=== PATIENT | male | born 1955 | race Caucasian/White ===

== ENCOUNTER → 2016-09-19 | Outpatient (CLI) | payer BC | LOC: MW.CHIM 08:27 | PROVIDERS: ATTEND Internal Medicine | DX: I10 Essential (primary) hypertension (principal); E11.9 Type 2 diabetes mellitus without complications | CPT/HCPCS: 36415; 80053; 80061; 83036; 85025 ==

== ENCOUNTER → 2016-09-24 | Outpatient (CLI) | payer BC ==
--- NOTE | 2016-09-24 16:37 | CR ---
EXAMINATION: Cervical spine HISTORY: Neck pain COMPARISON: MRI dated 02/28/2016 TECHNIQUE: AP, lateral, flexion and extension imaging FINDINGS: The cervical spinal alignment appears normal. The vertebral body heights and disc spaces a re grossly maintained. Mild marginal osteophytes are noted within the inferior cervical spine. Posit ion and alignment appear normal with flexion and extension. The prevertebral soft tissues are normal . No fracture or acute osseous abnormality. IMPRESSION: Mild degenerative changes without acute findings.
== END ==
LOC: MW.DI 13:12
PROVIDERS: ATTEND Neurological Surgery
DX: M54.2 Cervicalgia (principal); M47.812 Spondylosis without myelopathy or radiculopathy, cervical region
CPT/HCPCS: 72050; 72050-26

== ENCOUNTER → 2016-09-24 | Outpatient (CLI) | payer BC ==
--- NOTE | 2016-09-24 10:45 | US ---
EXAMINATION: Right upper quadrant ultrasound HISTORY: Hepatitis C COMPARISON: Renal ultrasound dated 01/31/2016 TECHNIQUE: Grayscale and color Doppler images obtained of the right upper quadrant. FINDINGS: The visualized pancreas appears normal. The liver is mildly increased in generalized echot exture without a focal hepatic mass. The gallbladder wall thickness is normal. No pericholecystic fl uid or shadowing gallstones. The common bile duct measures 5 mm. There is moderate right pyelocaliec tasis noted with dilatation of the proximal right ureter. Normal color Doppler flow is noted within the right kidney. The sonographic Torres sign is negative. IMPRESSION: 1. Mild fatty infiltration of the liver versus hepatocellular disease. 2. Moderate right-sided hydronephrosis, similar in appearance to the previous ultrasound.
== END ==
LOC: MW.US 08:47
PROVIDERS: ATTEND Internal Medicine
DX: R74.0 Nonspecific elevation of levels of transaminase and lactic acid dehydrogenase [LDH] (principal); K76.0 Fatty (change of) liver, not elsewhere classified; N13.30 Unspecified hydronephrosis
CPT/HCPCS: 76705; 76705-26

== ENCOUNTER 2018-01-01 06:50 | Day surgery (SDC) | payer BC ==
[~2018-01-01 06:50] MED LIST: Lactated Ringers 1,000 ML IV SCH; Sodium Chloride 0.9% 10 ML Syringe FLUSH PRN; Sodium Chloride 0.9% 2.5 ML Syringe FLUSH PRN; ceFAZolin 2 GM in Premix Bag 1 BAG IV ONE
[2018-01-01] MEDS ORDERED: fentaNYL 100 MCG/2 ML SDV ONE ×2 (07:25→07:28)
[2018-01-01] MEDS ORDERED: Ondansetron 4 MG/2 ML SDV ONE (07:25)
[2018-01-01] MEDS ORDERED: Propofol 200 MG/20 ML SDV ONE (07:25)
[2018-01-01] MEDS ORDERED: Midazolam 1 MG/ML 2 ML SDV ONE (07:26)
[2018-01-01] MEDS ORDERED: Glycopyrrolate 0.2 MG/ML SDV ONE (07:26)
--- NOTE | 2018-01-01 07:29 | PCM.PREANE ---
Preanesthetic Assessment - Anesthesia/Transfusion/Family Hx Anesthesia History: Prior Anesthesia Without Reaction Family History of Anesthesia Reaction: No Transfusion History: No Prior Transfusion(s) - Review of Systems General: No Symptoms Pulmonary: No Symptoms Cardiovascular: No Symptoms Gastrointestinal: No Symptoms Neurological: No Symptoms Other: Reports: None - Physical Assessment NPO Status Date: 12/31/17 Height: 1.83 m Weight: 116.573 kg ASA Class: 3 Airway Class: Mallampati = 1 Dentition: Reports: Normal Dentition ROM/Head Extension: Full Lungs: Clear to Auscultation, Normal Respiratory Effort Cardiovascular: Regular Rate, Regular Rhythm - Allergies Allergies/Adverse Reactions: Allergies Allergy/AdvReac Type Severity Reaction Status Date / Time No Known Allergies Allergy Verified 12/31/17 08:15 - Anesthesia Plan Pre-Op Medication Ordered: None - Acknowledgements Anesthesia Type Planned: General Anesthesia Pt an Appropriate Candidate for the Planned Anesthesia: Yes Alternatives and Risks of Anesthesia Discussed w Pt/Guardian: Yes Pt/Guardian Understands and Agrees with Anesthesia Plan: Yes Additional Comments: PMH: COPD, DM2, HLD, SHIRA, s/p rx for hep C PLAN: get PreAnesthesia Questionnaire HEENT History: Reports: Other (See Below) Other HEENT History: wears glasses Cardiovascular History: Reports: Hypertension Respiratory History: Reports: COPD, Sleep Apnea Other Respiratory History: uses CPAP Gastrointestinal History: Reports: Hepatitis Other Gastrointestinal History: hepatitis C in the past, has been treated Genitourinary History: Reports: Renal Calculus Musculoskeletal History: Reports: Arthritis Neurological History: Reports: Concussion Endocrine/Metabolic History: Reports: Diabetes, Type II, Obesity/BMI 30+ - Past Surgical History Head Surgeries/Procedures: Reports: None HEENT Surgical History: Reports: Tonsillectomy - SUBSTANCE USE Smoking Status *Q: Former Smoker Recreational Drug Use History: No - HOME MEDS Home Medications: Home Meds amLODIPine Besylate [Amlodipine Besylate] 5 mg PO DAILY 08/30/14 [History] Albuterol [Ventolin HFA] 2 puff INH ASDIRECTED PRN 12/31/17 [History] Budesonide/Formoterol Fumarate [Symbicort 80-4.5 Mcg Inhaler] 1 inhalation INH BID 12/31/17 [History] Dulaglutide [Trulicity] 1 injection SUBCUT WEEKLY 12/31/17 [History] Lisinopril 20 mg PO DAILY 12/31/17 [History] Spironolact/Hydrochlorothiazid [Spironolactone-HCTZ 25-25] 1 tab PO DAILY [History] glipiZIDE [Glucotrol XL] 0.5 tab PO BID 12/31/17 [History] metFORMIN HCl [Metformin HCl] 1 tab PO BID 12/31/17 [History] - CURRENT (IN HOUSE) MEDS Current Meds: Current Medications Lactated Ringer's (Ringers, Lactated) 1,000 mls @ 100 mls/hr IV ASDIRECTED JUAN Sodium Chloride (Saline Flush) 10 ml FLUSH ASDIRECTED PRN PRN Reason: Keep Vein Open Sodium Chloride (Saline Flush) 2.5 ml FLUSH ASDIRECTED PRN PRN Reason: Keep Vein Open Discontinued Medications Cefazolin Sodium/Dextrose 2 gm (/ Premix) 50 mls @ 100 mls/hr IV ONCALL ONE Stop: 01/01/18 00:30
[2018-01-01] MEDS ORDERED: Rocuronium 10 MG/ML 10 ML Syringe ONE (07:30)
[2018-01-01] MEDS ORDERED: Sugammadex Sodium 200 MG/2 ML VIAL ONE (07:33)
[2018-01-01] MEDS ORDERED: Morphine 10 MG/ML Syringe ONE (09:16)
--- NOTE | 2018-01-01 09:56 | PCM.POSTAN ---
POST ANESTHESIA ASSESSMENT - MENTAL STATUS Mental Status: Alert, Oriented - RESPIRATORY Respiratory Status: Respiratory Rate WNL, Airway Patent, O2 Saturation Stable - CARDIOVASCULAR CV Status: Pulse Rate WNL, Blood Pressure Stable - GASTROINTESTINAL GI Status: No Symptoms - POST OP HYDRATION Hydration Status: Adequate & Stable
--- NOTE | 2018-01-01 10:35 | PCM48HPAN ---
Post Anesthesia Note - EVALUATION WITHIN 48HRS OF ANESTHETIC Vital Signs in Normal Range: Yes Patient Participated in Evaluation: Yes Respiratory Function Stable: Yes Airway Patent: Yes Cardiovascular Function Stable: Yes Hydration Status Stable: Yes Pain Control Satisfactory: Yes Nausea and Vomiting Control Satisfactory: Yes Mental Status Recovered: Yes Resp Rate: 16
[2018-01-01 12:40] VITALS: BP 136/75
--- NOTE | 2018-01-01 12:53 | OR ---
SURGEON: Billy Logan M.D. DATE OF PROCEDURE: 01/01/2018 PREOPERATIVE DIAGNOSIS: Right mid ureteral stone. POSTOPERATIVE DIAGNOSIS: Right mid ureteral stone. OPERATIONS: Extracorporeal shockwave therapy plus cystoscopy, double-J stent placement. DESCRIPTION OF PROCEDURE: The patient was given general anesthesia, placed in lithotripsy table. The position of the patient was adjusted, so the stone could be treated and eventually received a total of 3000 shocks. The change in the appearance of the stone was not satisfactory, so he was then placed in dorsal lithotomy position, prepped and draped in sterile drapes. Cystoscopy was done that was normal. A Glidewire was advanced alongside the stone all the way up into the renal pelvis over which a 6-[place]el[place] 26 centimeter double-J stent was placed. Position was confirmed on fluoroscopy. The bladder was emptied and the patient was moved to recovery room in good condition. HOLDEN / ARLETH /[id number]
[2018-01-01] MEDS ORDERED: Desflurane 240 ML Bottle ONE (13:25)
== END 2018-01-01 11:20 | disposition home or self-care (01) ==
LOC: MW.SDS 06:50
PROVIDERS: ATTEND Urology
DX: N13.2 Hydronephrosis with renal and ureteral calculous obstruction (principal); I12.9 Hypertensive chronic kidney disease with stage 1 through stage 4 chronic kidney disease, or unspecified chronic kidney disease; E11.22 Type 2 diabetes mellitus with diabetic chronic kidney disease; N18.9 Chronic kidney disease, unspecified; J44.9 Chronic obstructive pulmonary disease, unspecified; E11.42 Type 2 diabetes mellitus with diabetic polyneuropathy; E66.9 Obesity, unspecified; Z68.34 Body mass index [BMI] 34.0-34.9, adult; E78.5 Hyperlipidemia, unspecified; G47.33 Obstructive sleep apnea (adult) (pediatric); Z87.891 Personal history of nicotine dependence; Z79.84 Long term (current) use of oral hypoglycemic drugs; Z79.51 Long term (current) use of inhaled steroids; Z79.899 Other long term (current) drug therapy
CPT/HCPCS: 50590; 52332; J0131; J2250; J2270; J2405; J2704; J3010; J3490; J7120

== ENCOUNTER 2018-01-22 06:53 | Day surgery (SDC) | payer BC ==
--- NOTE | 2018-01-22 07:16 | PCM.PREANE ---
Preanesthetic Assessment - Anesthesia/Transfusion/Family Hx Anesthesia History: Prior Anesthesia Without Reaction Family History of Anesthesia Reaction: No Transfusion History: No Prior Transfusion(s) Intubation History: Unknown - Review of Systems General: No Symptoms Pulmonary: No Symptoms Cardiovascular: No Symptoms Gastrointestinal: No Symptoms Neurological: No Symptoms Other: Reports: None - Physical Assessment Height: 1.83 m Weight: 113.852 kg ASA Class: 3 Mental Status: Alert & Oriented x3 Airway Class: Mallampati = 2 Dentition: Reports: Normal Dentition Thyro-Mental Finger Breadths: 3 Mouth Opening Finger Breadths: 3 ROM/Head Extension: Full Lungs: Clear to Auscultation, Normal Respiratory Effort Cardiovascular: Regular Rate, Regular Rhythm - Allergies Allergies/Adverse Reactions: Allergies Allergy/AdvReac Type Severity Reaction Status Date / Time No Known Allergies Allergy Verified 01/19/18 08:45 - Blood Blood Available: No - Anesthesia Plan Pre-Op Medication Ordered: None - Acknowledgements Anesthesia Type Planned: General Anesthesia Pt an Appropriate Candidate for the Planned Anesthesia: Yes Alternatives and Risks of Anesthesia Discussed w Pt/Guardian: Yes Pt/Guardian Understands and Agrees with Anesthesia Plan: Yes PreAnesthesia Questionnaire HEENT History: Reports: Other (See Below) Other HEENT History: wears glasses Cardiovascular History: Reports: Hypertension Respiratory History: Reports: COPD, Sleep Apnea Other Respiratory History: uses CPAP Gastrointestinal History: Reports: Hepatitis Other Gastrointestinal History: hepatitis C in the past, has been treated Genitourinary History: Reports: Renal Calculus Musculoskeletal History: Reports: Arthritis Neurological History: Reports: Concussion Endocrine/Metabolic History: Reports: Diabetes, Type II, Obesity/BMI 30+ - Past Surgical History Head Surgeries/Procedures: Reports: None HEENT Surgical History: Reports: Tonsillectomy Male Surgical History: Reports: Lithotripsy (ESWL) (3 weeks ago) - SUBSTANCE USE Smoking Status *Q: Former Smoker (quit 15-20 years ago) Recreational Drug Use History: No - HOME MEDS Home Medications: Home Meds amLODIPine Besylate [Amlodipine Besylate] 5 mg PO DAILY 08/30/14 [History] Albuterol [Ventolin HFA] 2 puff INH ASDIRECTED PRN 12/31/17 [History] Budesonide/Formoterol Fumarate [Symbicort 80-4.5 Mcg Inhaler] 1 inhalation INH BID 12/31/17 [History] Dulaglutide [Trulicity] 0.75 mg SUBCUT WEEKLY 12/31/17 [History] Lisinopril 20 mg PO DAILY 12/31/17 [History] Spironolact/Hydrochlorothiazid [Spironolactone-HCTZ 25-25] 1 tab PO DAILY [History] glipiZIDE [Glucotrol XL] 0.5 tab PO BID 12/31/17 [History] metFORMIN HCl [Metformin HCl] 1 tab PO BID 12/31/17 [History] - CURRENT (IN HOUSE) MEDS Current Meds: Current Medications Lactated Ringer's (Ringers, Lactated) 1,000 mls @ 100 mls/hr IV ASDIRECTED JUAN Sodium Chloride (Saline Flush) 10 ml FLUSH ASDIRECTED PRN PRN Reason: Keep Vein Open Sodium Chloride (Saline Flush) 2.5 ml FLUSH ASDIRECTED PRN PRN Reason: Keep Vein Open Discontinued Medications Cefazolin Sodium/Dextrose 2 gm (/ Premix) 50 mls @ 100 mls/hr IV ONCALL ONE Stop: 01/22/18 00:30
[2018-01-22] MEDS ORDERED: Iopamidol 408 MG/ML 50 ML SDV ONE (07:42)
[2018-01-22] MEDS ORDERED: fentaNYL 100 MCG/2 ML SDV ONE ×2 (07:48→10:12)
[2018-01-22] MEDS ORDERED: Midazolam 1 MG/ML 2 ML SDV ONE (07:49)
[2018-01-22] MEDS ORDERED: Lidocaine 1% 0 ML ONE (07:50)
[2018-01-22] MEDS ORDERED: Ondansetron 4 MG/2 ML SDV ONE (07:50)
[2018-01-22] MEDS ORDERED: Lidocaine 2% 5 ML SDV ONE (07:50)
[2018-01-22] MEDS ORDERED: Succinylcholine 200 MG/10 ML MDV ONE (07:50)
[2018-01-22] MEDS ORDERED: Propofol 200 MG/20 ML SDV ONE (07:56)
[2018-01-22] MEDS ORDERED: ceFAZolin/Dextrose,Iso-Osmotic 2 GM/50 ML Duplex Bag IV ONE (08:23)
[2018-01-22] MEDS ORDERED: Rocuronium 10 MG/ML 10 ML Syringe ONE (08:45)
[2018-01-22] MEDS ORDERED: Labetalol 100 MG/20 ML MDV ONE (08:53)
[2018-01-22] MEDS ORDERED: Glycopyrrolate 0.2 MG/ML SDV ONE (09:30)
[2018-01-22] MEDS ORDERED: Neostigmine Methylsulfate 1 MG/ML 5 ML Syringe ONE (09:30)
[2018-01-22] MEDS ORDERED: Sugammadex Sodium 200 MG/2 ML VIAL ONE (10:09)
--- NOTE | 2018-01-22 11:05 | PCM.POSTAN ---
POST ANESTHESIA ASSESSMENT - MENTAL STATUS Mental Status: Alert, Oriented - RESPIRATORY Respiratory Status: Respiratory Rate WNL, Airway Patent, O2 Saturation Stable - CARDIOVASCULAR CV Status: Pulse Rate WNL - GASTROINTESTINAL GI Status: No Symptoms - PAIN Pain Score: 0 - POST OP HYDRATION Hydration Status: Adequate & Stable - OBSERVATIONS Free Text/Narrative:: no anesthesia problems
--- NOTE | 2018-01-22 11:54 | PCM48HPAN ---
Post Anesthesia Note - EVALUATION WITHIN 48HRS OF ANESTHETIC Vital Signs in Normal Range: Yes Patient Participated in Evaluation: Yes Respiratory Function Stable: Yes Airway Patent: Yes Cardiovascular Function Stable: Yes Hydration Status Stable: Yes Pain Control Satisfactory: Yes Nausea and Vomiting Control Satisfactory: Yes Mental Status Recovered: Yes Resp Rate: 12 - COMMENTS/OBSERVATIONS Free Text/Narrative:: no anesthesia problems
[2018-01-22 12:24] VITALS: BP 124/70
--- NOTE | 2018-01-22 16:23 | CR ---
EXAMINATION: Right ureteroscopy HISTORY: Ureteroscopy COMPARISON: 01/15/2018 TECHNIQUE: 3 fluoroscopic images provided FINDINGS/IMPRESSION: Operative control films demonstrate selection of the left renal collecting syste m with subsequent stone removal. Placement of a right-sided nephroureteral stent was again noted.
--- NOTE | 2018-01-22 17:40 | OR ---
SURGEON: Billy Logan M.D. DATE OF PROCEDURE: 01/22/2018 PREOPERATIVE DIAGNOSIS: Right upper ureteral stone, embedded and large. POSTOPERATIVE DIAGNOSIS: Right upper ureteral stone, embedded and large. OPERATIONS: Ureteroscopy, laser lithotripsy, and double-J stent placement. DESCRIPTION OF PROCEDURE: The patient was given general anesthesia. He was placed in dorsal lithotomy position, prepped and draped in sterile drapes. Cystourethroscopy was done. The pre-existing double-J stent was taken out. A guidewire was advanced in the ureter alongside the stone and the Accordion was also advanced above the stone and opened up to keep it in place. The flexible ureteroscope was advanced over a second guidewire all the way up into where the stone is located, and laser was applied to the stone until it was broken up into a multitude of smaller pieces. Accordion was used to grasp some of the pieces down, which were removed. The rigid ureteroscope and a grasper were used along with the Zero-tip stone basket to get rid of the rest of the fragments. With that done, a guidewire was advanced alongside the stone and over that, a 6-[place] 26 centimeter double-J stent was placed. Position was confirmed under fluoroscopy. The bladder was emptied. The string at the end of the stents taped to the outside of the penis. The patient was moved to recovery room in good condition. HOLDEN / ARLETH /[id number]
== END 2018-01-22 12:20 | disposition home or self-care (01) ==
LOC: MW.SDS 06:53
PROVIDERS: ATTEND Urology
DX: N20.1 Calculus of ureter (principal); I10 Essential (primary) hypertension; J44.9 Chronic obstructive pulmonary disease, unspecified; E11.9 Type 2 diabetes mellitus without complications; E66.9 Obesity, unspecified; Z68.34 Body mass index [BMI] 34.0-34.9, adult; Z87.891 Personal history of nicotine dependence; Z79.84 Long term (current) use of oral hypoglycemic drugs; Z79.899 Other long term (current) drug therapy
CPT/HCPCS: 52356; 76001; 82962; C1769; C2625; J0131; J0330; J0690; J2250; J2405; J2704; J3010; J3490; J7120; Q9966

== ENCOUNTER 2019-10-20 15:36 | Inpatient (IN) | payer BC ==
[2019-10-20] MEDS ORDERED: Sodium Chloride 0.9% 10 ML Syringe FLUSH PRN (15:54)
[2019-10-20] MEDS ORDERED: Sodium Chloride 0.9% 2.5 ML Syringe FLUSH PRN (15:54)
[2019-10-20] MEDS ORDERED: cefTRIAXone 1 GM in Premix Bag 1 BAG IV ONE (15:56)
--- NOTE | 2019-10-20 16:00 | EDM.PDOC ---
ED HPI GENERAL MEDICAL PROBLEM - General Chief Complaint: Genitourinary Problem Stated Complaint: KIDNEY INFECTION Time Seen by Provider: 10/20/19 15:40 - History of Present Illness INITIAL COMMENTS - FREE TEXT/NARRATIVE: History of present illness: Patient feels weak febrile and short of breath. He has been deteriorating gradually for 3 weeks. He began with weakness and loss of appetite. He has had profound weight loss. Lately he has become increasingly short of breath with the special dyspnea on exertion. She was scheduled to see a forms builder because his renal function had deteriorated he is a diabetic on blood pressure medicine. Patient is a former smoker. He has no significant history of heart disease but has mild COPD for which he uses an inhaled steroid rate in the morning and that is all he needs. [] Review of systems: As per history of present illness and below otherwise all systems reviewed and negative. Past medical history: As per history of present illness and as reviewed below otherwise noncontributory. Surgical history: As per history of present illness and as reviewed below otherwise noncontributory. Social history: No reported history of drug or alcohol abuse. Family history: As per history of present illness and as reviewed below otherwise noncontributory. Physical exam: HEENT: Atraumatic, normocephalic, pupils reactive, negative for conjunctival pallor or scleral icterus, mucous membranes moist, throat clear, neck supple, nontender, trachea midline. Lungs: Mild respiratory distress just resting. The patient has rails more than fdc up both lung bases. Heart: S1S2, regular, negative for clicks, rubs, or JVD. Abdomen: Soft, nondistended, he is tenderness, especially epigastrium. Negative for masses or hepatosplenomegaly. Negative for costovertebral tenderness. Pelvis: Stable nontender. Genitourinary: Deferred. Rectal: Deferred. Extremities: Atraumatic, negative for cords or calf pain. Neurovascular unremarkable. Neuro: Awake, alert, oriented. Cranial nerves II through XII unremarkable. Cerebellum unremarkable. Motor and sensory unremarkable throughout. Exam nonfocal. Diagnostics: [] Therapeutics: [] Impression: [] Plan: [] Definitive disposition and diagnosis as appropriate pending reevaluation and review of above. Case was discussed with Dr. Tucker and patient admitted to Dr. Garcia left flank Pain Score (Numeric/FACES): 8 - Related Data Allergies Allergy/AdvReac Type Severity Reaction Status Date / Time No Known Allergies Allergy Verified 10/20/19 15:39 Home Meds: Home Meds amLODIPine Besylate [Amlodipine Besylate] 5 mg PO DAILY 08/30/14 [History] Albuterol [Ventolin HFA] 2 puff INH ASDIRECTED PRN 12/31/17 [History] Budesonide/Formoterol Fumarate [Symbicort 80-4.5 Mcg Inhaler] 1 inhalation INH BID 12/31/17 [History] Dulaglutide [Trulicity] 0.75 mg SUBCUT WEEKLY 12/31/17 [History] Lisinopril 20 mg PO DAILY 12/31/17 [History] Spironolact/Hydrochlorothiazid [Spironolactone-HCTZ 25-25] 20 - 25 mg PO DAILY 12/31/17 [History] glipiZIDE [Glucotrol XL] 0.5 tab PO BID 12/31/17 [History] metFORMIN HCl [Metformin HCl] 500 mg PO BIDMEALS 12/31/17 [History] Past Medical History HEENT History: Reports: Other (See Below) Other HEENT History: wears glasses Cardiovascular History: Reports: Hypertension Respiratory History: Reports: COPD, Sleep Apnea Other Respiratory History: uses CPAP Gastrointestinal History: Reports: Hepatitis Other Gastrointestinal History: hepatitis C in the past, has been treated Genitourinary History: Reports: Renal Calculus Musculoskeletal History: Reports: Arthritis Neurological History: Reports: Concussion Endocrine/Metabolic History: Reports: Diabetes, Type II, Obesity/BMI 30+ - Infectious Disease History Infectious Disease History: Reports: None - Past Surgical History Head Surgeries/Procedures: Reports: None HEENT Surgical History: Reports: Tonsillectomy Male Surgical History: Reports: Lithotripsy (ESWL) Social & Family History - Family History Family Medical History: Noncontributory - Caffeine Use Caffeine Use: ED ROS GENERAL - Review of Systems Review Of Systems: See Below ED EXAM, GENERAL - Physical Exam Exam: See Below Course - Vital Signs Last Recorded V/S: Last Vital Signs Temp 99.6 F 10/20/19 15:41 Pulse 119 H 10/20/19 15:41 Resp 30 H 10/20/19 15:41 BP 129/78 10/20/19 15:41 Pulse Ox 93 L 10/20/19 15:41 - Orders/Labs/Meds Orders: Active Orders 24 hr Category Date Time Status Admission Status [Patient Status] [ADT] Stat ADT 10/20/19 17:29 Active EKG Documentation Completion [RC] AM Care 10/20/19 15:54 Active Abdomen Pelvis wo Cont [CT] Stat Exams 10/20/19 17:36 Ordered B-TYPE NATRIURETIC PEPTIDE,BNP [CHEM] Stat Lab 10/20/19 14:14 Received CULTURE BLOOD [BC] Stat Lab 10/20/19 16:03 Received CULTURE BLOOD [BC] Stat Lab 10/20/19 16:12 Received Sodium Chloride 0.9% [Normal Saline] 1,000 ml Med 10/20/19 16:50 Active IV .Bolus Sodium Chloride 0.9% [Normal Saline] 2,000 ml Med 10/20/19 17:15 Active IV ASDIRECTED Sodium Chloride 0.9% [Saline Flush] Med 10/20/19 15:54 Active 10 ml FLUSH ASDIRECTED PRN Sodium Chloride 0.9% [Saline Flush] Med 10/20/19 15:54 Active 2.5 ml FLUSH ASDIRECTED PRN Blood Culture x2 Reflex Set [OM.PC] Stat Oth 10/20/19 15:54 Ordered Saline Lock Insert [OM.PC] Stat Oth 10/20/19 15:54 Ordered Medication Orders Sodium Chloride (Normal Saline) 1,000 mls @ 999 mls/hr IV .Bolus ONE Stop: 10/20/19 17:50 Last Admin: 10/20/19 17:02 Dose: 999 mls/hr Documented by: AFSHAN Sodium Chloride (Normal Saline) 2,000 mls @ 100 mls/hr IV ASDIRECTED JUAN Last Admin: 10/20/19 17:09 Dose: 100 mls/hr Documented by: [id number] Sodium Chloride (Saline Flush) 10 ml FLUSH ASDIRECTED PRN PRN Reason: Keep Vein Open Last Admin: 10/20/19 17:02 Dose: 10 ml Documented by: AFSHAN Sodium Chloride (Saline Flush) 2.5 ml FLUSH ASDIRECTED PRN PRN Reason: Keep Vein Open Last Admin: 10/20/19 17:02 Dose: 2.5 ml Documented by: AFSHAN Labs: Laboratory Tests 10/20/19 10/20/19 Range/Units 16:03 16:03 Lactate 3.0 H* (0.20-2.00) mmol/L Troponin I < 0.050 (0.000-0.056) ng/mL Lipase 101 (73-393) U/L Meds: Medications Generic Name Dose Route Start Last Admin Trade Name Freq PRN Reason Stop Dose Admin Sodium Chloride 1,000 mls @ 999 mls/hr 10/20/19 16:50 10/20/19 17:02 Normal Saline IV 10/20/19 17:50 999 mls/hr .Bolus ONE Administration Sodium Chloride 2,000 mls @ 100 mls/hr 10/20/19 17:15 10/20/19 17:09 Normal Saline IV 100 mls/hr ASDIRECTED JUAN Administration Sodium Chloride 10 ml 10/20/19 15:54 10/20/19 17:02 Saline Flush FLUSH 10 ml ASDIRECTED PRN Administration Keep Vein Open Sodium Chloride 2.5 ml 10/20/19 15:54 10/20/19 17:02 Saline Flush FLUSH 2.5 ml ASDIRECTED PRN Administration Keep Vein Open Discontinued Medications Generic Name Dose Route Start Last Admin Trade Name Freq PRN Reason Stop Dose Admin Ceftriaxone Sodium/Dextrose 1 50 mls @ 100 mls/hr 10/20/19 15:56 10/20/19 16:48 gm/ Premix IV 10/20/19 16:25 100 mls/hr ONETIME ONE Administration Departure - Departure Time of Disposition: 17:32 Disposition: Admitted As Inpatient 64 Condition: Good Clinical Impression: Pyelonephritis, Acute kidney failure - Discharge Information *PRESCRIPTION DRUG MONITORING PROGRAM REVIEWED*: Not Applicable *COPY OF PRESCRIPTION DRUG MONITORING REPORT IN PATIENT RADHA: Not Applicable Referrals: Johnny Kitchen MD [Primary Care Provider] - Forms: ED Department Discharge Sepsis Event Note (ED) - Evaluation Sepsis Screening Result: Possible Sepsis Risk - Focused Exam Vital Signs: Vital Signs Temp Pulse Resp BP Pulse Ox 10/20/19 15:41 99.6 F 119 H 30 H 129/78 93 L - My Orders Last 24 Hours: My Active Orders 10/20/19 14:14 B-TYPE NATRIURETIC PEPTIDE,BNP [CHEM] Stat 10/20/19 15:54 EKG Documentation Completion [RC] AM Sodium Chloride 0.9% [Saline Flush] 10 ml FLUSH ASDIRECTED PRN Sodium Chloride 0.9% [Saline Flush] 2.5 ml FLUSH ASDIRECTED PRN Blood Culture x2 Reflex Set [OM.PC] Stat Saline Lock Insert [OM.PC] Stat 10/20/19 16:03 CULTURE BLOOD [BC] Stat 10/20/19 16:12 CULTURE BLOOD [BC] Stat 10/20/19 16:50 Sodium Chloride 0.9% [Normal Saline] 1,000 ml IV .Bolus 10/20/19 17:15 Sodium Chloride 0.9% [Normal Saline] 2,000 ml IV ASDIRECTED 10/20/19 17:29 Admission Status [Patient Status] [ADT] Stat 10/20/19 17:36 Abdomen Pelvis wo Cont [CT] Stat - Assessment/Plan Last 24 Hours: My Active Orders 10/20/19 14:14 B-TYPE NATRIURETIC PEPTIDE,BNP [CHEM] Stat 10/20/19 15:54 EKG Documentation Completion [RC] AM Sodium Chloride 0.9% [Saline Flush] 10 ml FLUSH ASDIRECTED PRN Sodium Chloride 0.9% [Saline Flush] 2.5 ml FLUSH ASDIRECTED PRN Blood Culture x2 Reflex Set [OM.PC] Stat Saline Lock Insert [OM.PC] Stat 10/20/19 16:03 CULTURE BLOOD [BC] Stat 10/20/19 16:12 CULTURE BLOOD [BC] Stat 10/20/19 16:50 Sodium Chloride 0.9% [Normal Saline] 1,000 ml IV .Bolus 10/20/19 17:15 Sodium Chloride 0.9% [Normal Saline] 2,000 ml IV ASDIRECTED 10/20/19 17:29 Admission Status [Patient Status] [ADT] Stat 10/20/19 17:36 Abdomen Pelvis wo Cont [CT] Stat
--- NOTE | 2019-10-20 16:45 | CR ---
Chest: Portable view of the chest was obtained. Comparison: No prior chest imaging is available. Heart size and mediastinum are normal. Lungs are clear no acute parenchymal change. Bony structures are grossly intact. Nodular density is noted within the right hilum believed to represent vascular confluence. Impression: 1. Nothing acute is seen on portable chest x-ray. Diagnostic code #2 Study was dictated in MDT
[2019-10-20 16:49] LABS: LIPASE 101 U/L (73-393)
[2019-10-20] MEDS ORDERED: Sodium Chloride 0.9% 1,000 ML IV ONE (16:50)
[2019-10-20] MEDS: Sodium Chloride 0.9% 2,000 ML IV SCH ×2 (17:09→22:31)
--- NOTE | 2019-10-20 18:24 | CT ---
CT abdomen and pelvis Technique: Multiple axial sections were obtained from above the dome of the diaphragm inferiorly through the pubic symphysis. Intravenous and oral contrast was not utilized. Findings: Dilated collecting systems of both kidneys are noted. Left ureter is prominent in size. This finding is due to an obstructing stone located distally and measuring about 5 mm in size. Partially obstructing stone is noted within the distal right ureter measuring 5 mm in size. Second partially obstructing stone is seen next to the first stone which is noted on the coronal images and is smaller in size measuring approximately 3-4 mm. Small nonobstructing stone is noted within the mid right kidney measuring about 3 mm. Right kidney is smaller than the left side. Right kidney shows several cysts. Visualized lung bases shows slight atelectasis and scarring within both bases. Liver shows fatty infiltration. No focal abnormality is seen within the liver. Spleen appears within normal limits. Adrenal glands show no nodule. Pancreas is within normal limits. Small soft tissue nodule noted medial to the spleen compatible with accessory splenic tissue. Gallbladder contains no calcified gallstones. Aorta shows no aneurysm. No retroperitoneal adenopathy or mesenteric abnormalities are seen. Diverticuli are seen within the sigmoid colon without diverticulitis. Diverticuli are also noted within the descending colon with lesser diverticuli scattered within other portions of the colon. Appendix is seen which is normal in size. No pelvic mass or adenopathy is seen. Bone window settings were reviewed which shows spondylolisthesis at L5-S1 due to degenerative apophyseal change. Disc space narrowing and vacuum phenomena is noted at L5-S1. Lesser degenerative change is noted within other portions of the spine. Fat-containing umbilical hernia is noted. Impression: 1. 2 partially obstructing stones within the distal right ureter measuring 3-4 mm and 5 mm. Single obstructing stone within the distal left ureter measuring 5 mm. 2. Small nonobstructing stone within the right kidney. Right kidney is smaller than the left kidney. Several cysts are noted within the right kidney. 3. Fatty infiltration within the liver. 4. Other findings which appear nonacute as described above. Diagnostic code #3 Study was dictated in MDT
[2019-10-20] MEDS ORDERED: Propofol 200 MG/20 ML SDV ONE ×2 (19:08→20:15)
[2019-10-20] MEDS ORDERED: fentaNYL 250 MCG/5 ML SDV ONE (19:08)
[2019-10-20] MEDS ORDERED: Midazolam 1 MG/ML 2 ML SDV ONE (19:08)
[2019-10-20] MEDS ORDERED: Lidocaine 2% 5 ML SDV ONE (19:13)
[2019-10-20] MEDS ORDERED: Ondansetron 4 MG/2 ML SDV ONE (19:19)
[2019-10-20] MEDS ORDERED: Acetaminophen 1,000 MG in Premix Bag 1 BAG IV PRN (19:20)
[2019-10-20] MEDS ORDERED: fentaNYL 100 MCG/2 ML SDV IVPUSH PRN (19:20)
--- NOTE | 2019-10-20 19:20 | PCM.PREANE ---
Preanesthetic Assessment - Anesthesia/Transfusion/Family Hx Anesthesia History: Prior Anesthesia Without Reaction Family History of Anesthesia Reaction: No Transfusion History: No Prior Transfusion(s) Intubation History: Unknown - Physical Assessment NPO Status Date: 10/20/19 NPO Status Time: 00:05 Vital Signs: Last Vital Signs Temp 37.4 C 10/20/19 18:49 Pulse 95 10/20/19 18:49 Resp 30 H 10/20/19 15:41 BP 132/83 10/20/19 18:49 Pulse Ox 91 L 10/20/19 18:49 Height: 1.83 m Weight: 103.419 kg ASA Class: 2E - Lab Values: Laboratory Last Values Lactate 3.0 mmol/L (0.20-2.00) H* 10/20/19 16:03 Troponin I < 0.050 ng/mL (0.000-0.056) 10/20/19 16:03 B-Natriuretic Peptide 4 PG/ML (<100) 10/20/19 14:14 Lipase 101 U/L (73-393) 10/20/19 16:03 SARS-CoV-2 RNA (RT-PCR) NEGATIVE (NEGATIVE) 10/20/19 18:40 - Allergies Allergies/Adverse Reactions: Allergies Allergy/AdvReac Type Severity Reaction Status Date / Time No Known Allergies Allergy Verified 10/20/19 15:39 - Acknowledgements Anesthesia Type Planned: General Anesthesia Pt an Appropriate Candidate for the Planned Anesthesia: Yes Alternatives and Risks of Anesthesia Discussed w Pt/Guardian: Yes Pt/Guardian Understands and Agrees with Anesthesia Plan: Yes PreAnesthesia Questionnaire HEENT History: Reports: Other (See Below) Other HEENT History: wears glasses Cardiovascular History: Reports: Hypertension Respiratory History: Reports: COPD, Sleep Apnea Other Respiratory History: uses CPAP Gastrointestinal History: Reports: Hepatitis Other Gastrointestinal History: hepatitis C in the past, has been treated Genitourinary History: Reports: Renal Calculus Musculoskeletal History: Reports: Arthritis Neurological History: Reports: Concussion Endocrine/Metabolic History: Reports: Diabetes, Type II, Obesity/BMI 30+ - Infectious Disease History Infectious Disease History: Reports: None - Past Surgical History Head Surgeries/Procedures: Reports: None HEENT Surgical History: Reports: Tonsillectomy Male Surgical History: Reports: Lithotripsy (ESWL) - SUBSTANCE USE Smoking Status *Q: Never Smoker Recreational Drug Use History: No - HOME MEDS Home Medications: Home Meds amLODIPine Besylate [Amlodipine Besylate] 5 mg PO DAILY 08/30/14 [History] Albuterol [Ventolin HFA] 2 puff INH ASDIRECTED PRN 12/31/17 [History] Budesonide/Formoterol Fumarate [Symbicort 80-4.5 Mcg Inhaler] 1 inhalation INH BID 12/31/17 [History] Dulaglutide [Trulicity] 0.75 mg SUBCUT WEEKLY 12/31/17 [History] Lisinopril 20 mg PO DAILY 12/31/17 [History] Spironolact/Hydrochlorothiazid [Spironolactone-HCTZ 25-25] 20 - 25 mg PO DAILY 12/31/17 [History] glipiZIDE [Glucotrol XL] 0.5 tab PO BID 12/31/17 [History] metFORMIN HCl [Metformin HCl] 500 mg PO BIDMEALS 12/31/17 [History] - CURRENT (IN HOUSE) MEDS Current Meds: Current Medications Sodium Chloride (Normal Saline) 2,000 mls @ 100 mls/hr IV ASDIRECTED JUAN Last Admin: 10/20/19 17:09 Dose: 100 mls/hr Documented by: Sodium Chloride (Saline Flush) 10 ml FLUSH ASDIRECTED PRN PRN Reason: Keep Vein Open Last Admin: 10/20/19 17:02 Dose: 10 ml Documented by: Sodium Chloride (Saline Flush) 2.5 ml FLUSH ASDIRECTED PRN PRN Reason: Keep Vein Open Last Admin: 10/20/19 17:02 Dose: 2.5 ml Documented by: Discontinued Medications Fentanyl (Sublimaze) Confirm Administered Dose 250 mcg .ROUTE .STK-MED ONE Stop: 10/20/19 19:09 Ceftriaxone Sodium/Dextrose 1 (gm/ Premix) 50 mls @ 100 mls/hr IV ONETIME ONE Stop: 10/20/19 16:25 Last Admin: 10/20/19 16:48 Dose: 100 mls/hr Documented by: Sodium Chloride (Normal Saline) 1,000 mls @ 999 mls/hr IV .Bolus ONE Stop: 10/20/19 17:50 Last Admin: 10/20/19 17:02 Dose: 999 mls/hr Documented by: Lidocaine (Xylocaine-Mpf 2%) Confirm Administered Dose 5 ml .ROUTE .STK-MED ONE Stop: 10/20/19 19:14 Midazolam HCl (Versed 1 Mg/Ml) Confirm Administered Dose 2 mg .ROUTE .STK-MED ONE Stop: 10/20/19 19:09 Propofol (Diprivan 20 Ml) Confirm Administered Dose 200 mg .ROUTE .STK-MED ONE Stop: 10/20/19 19:09
[2019-10-20] MEDS ORDERED: Succinylcholine/Sod PF 100 MG/5 ML SYRINGE IV ONE (19:22)
[2019-10-20] MEDS ORDERED: Levofloxacin/Dextrose 5%-Water 500 MG in Premix Bag 1 BAG IV SCH (19:45)
[2019-10-20] MEDS ORDERED: Levofloxacin/Dextrose 5%-Water 500 MG in Premix Bag 1 BAG IV ONE ×2 (19:47→19:58)
[2019-10-20] MEDS ORDERED: WATER IV ONE (19:49)
[2019-10-20] MEDS ORDERED: LEVOFLOXACIN IV ONE (19:49)
[2019-10-20] MEDS ORDERED: DEXTROSE IV ONE (19:49)
[2019-10-20] MEDS ORDERED: fentaNYL 100 MCG/2 ML SDV ONE (20:17)
--- NOTE | 2019-10-20 20:34 | PCM.HP.2 ---
H&P History of Present Illness - General Date of Service: 10/20/19 Admit Problem/Dx: Admission Diagnosis/Problem Admission Diagnosis/Problem Pyelonephritis - History of Present Illness Initial Comments - Free Text/Narative: History of present illness: Patient is a 64 y/o M with PMH of DM, CKD, HTN, Renal stones, COPD, former smoker who was sent to ER from his PCP due to concern of UTI/Pyelonephritis. Patient feels weak,febrile, loss of appetite and has been staying in bed for last few days due to weakness. States that his symptoms started 3 weeks back and since than are getting worse. He has had profound w eight loss. Lately he has become increasingly short of breath with the special dyspnea on exertion. In the ER patient was found to have Leucocytosis and UTI. Started on IV antibiotics, and IV fluids, blood and urine cultures were sent. CT scan of abdomen reveled obstructing renal stones, Urology was consulted and patient was taken to OR for stent placement. I saw the patient after the procedure. left flank Pain Score (Numeric/FACES): 8 - Related Data Allergies/Adverse Reactions: Allergies Allergy/AdvReac Type Severity Reaction Status Date / Time No Known Allergies Allergy Verified 10/20/19 15:39 Home Medications: Home Meds amLODIPine Besylate [Amlodipine Besylate] 5 mg PO DAILY 08/30/14 [History] Albuterol [Ventolin HFA] 2 puff INH ASDIRECTED PRN 12/31/17 [History] Budesonide/Formoterol Fumarate [Symbicort 80-4.5 Mcg Inhaler] 1 inhalation INH BID 12/31/17 [History] Dulaglutide [Trulicity] 0.75 mg SUBCUT WEEKLY 12/31/17 [History] Lisinopril 20 mg PO DAILY 12/31/17 [History] Spironolact/Hydrochlorothiazid [Spironolactone-HCTZ 25-25] 20 - 25 mg PO DAILY 12/31/17 [History] glipiZIDE [Glucotrol XL] 0.5 tab PO BID 12/31/17 [History] metFORMIN HCl [Metformin HCl] 500 mg PO BIDMEALS 12/31/17 [History] Past Medical History HEENT History: Reports: Other (See Below) Other HEENT History: wears glasses Cardiovascular History: Reports: Hypertension Respiratory History: Reports: COPD, Sleep Apnea Other Respiratory History: uses CPAP Gastrointestinal History: Reports: Hepatitis Other Gastrointestinal History: hepatitis C in the past, has been treated Genitourinary History: Reports: Renal Calculus Musculoskeletal History: Reports: Arthritis Neurological History: Reports: Concussion Endocrine/Metabolic History: Reports: Diabetes, Type II, Obesity/BMI 30+ - Infectious Disease History Infectious Disease History: Reports: None - Past Surgical History Head Surgeries/Procedures: Reports: None HEENT Surgical History: Reports: Tonsillectomy Male Surgical History: Reports: Lithotripsy (ESWL) Social & Family History - Family History Family Medical History: Noncontributory - Tobacco Use Smoking Status *Q: Never Smoker - Caffeine Use Caffeine Use: - Recreational Drug Use Recreational Drug Use: No H&P Review of Systems - Review of Systems: Review Of Systems: See Below General: Reports: Fever, Chills, Malaise, Weakness, Fatigue, Decreased Appetite HEENT: Denies: Dysphasia, Ear Pain Pulmonary: Reports: Shortness of Breath. Denies: Wheezing, Pleuritic Chest Pain Cardiovascular: Reports: Dyspnea on Exertion. Denies: Chest Pain, Palpitations Gastrointestinal: Reports: Abdominal Pain, Decreased Appetite, Nausea. Denies: Anorexia, Black Stool Genitourinary: Denies: Dysuria, Frequency Skin: Denies: Cyanosis, Jaundice, Mottled Psychiatric: Denies: Confusion, Depression Exam - Exam Exam: See Below - Vital Signs Vital Signs: Last Vital Signs Temp 37.4 C 10/20/19 18:49 Pulse 95 10/20/19 18:49 Resp 30 H 10/20/19 15:41 BP 132/83 10/20/19 18:49 Pulse Ox 91 L 10/20/19 18:49 Weight: 103.419 kg - Exam General: Alert, Oriented Lungs: Clear to Auscultation, Normal Respiratory Effort Cardiovascular: Regular Rate, Regular Rhythm GI/Abdominal Exam: Normal Bowel Sounds, Soft, Non-Tender - Patient Data Lab Results Last 24 hrs: Laboratory Results - last 24 hr 10/20/19 10/20/19 10/20/19 Range/Units 11:30 14:14 16:03 Lactate 0.9 3.0 H* (0.20-2.00) mmol/L Troponin I (0.000-0.056) ng/mL B-Natriuretic Peptide 4 (<100) PG/ML Lipase (73-393) U/L SARS-CoV-2 RNA (RT-PCR) (NEGATIVE) 10/20/19 10/20/19 Range/Units 16:03 18:40 Lactate (0.20-2.00) mmol/L Troponin I < 0.050 (0.000-0.056) ng/mL B-Natriuretic Peptide (<100) PG/ML Lipase 101 (73-393) U/L SARS-CoV-2 RNA (RT-PCR) NEGATIVE (NEGATIVE) Sepsis Event Note - Evaluation Sepsis Screening Result: Possible Sepsis Risk - Focused Exam Vital Signs: Vital Signs Temp Pulse Resp BP Pulse Ox 10/20/19 18:49 37.4 C 95 132/83 91 L 10/20/19 17:38 101 H 100/63 91 L 10/20/19 17:08 109 H 113/54 L 93 L 10/20/19 16:38 108 H 125/67 92 L 10/20/19 15:41 37.6 C 119 H 30 H 129/78 93 L Date Exam was Performed: 10/20/19 Time Exam was Performed: 21:19 - Problem List (1) CKD (chronic kidney disease) SNOMED Code(s): 240076648 ICD Code: N18.9 - CHRONIC KIDNEY DISEASE, UNSPECIFIED Status: Acute Current Visit: Yes (2) Acute kidney failure SNOMED Code(s): 85640941 ICD Code: N17.9 - ACUTE KIDNEY FAILURE, UNSPECIFIED Status: Acute Current Visit: Yes (3) Pyelonephritis SNOMED Code(s): 41824340 ICD Code: N12 - TUBULO-INTERSTITIAL NEPHRITIS, NOT SPCF ACUTE OR CHRONIC Status: Acute Current Visit: Yes Problem List Initiated/Reviewed/Updated: Yes Orders Last 24hrs: Active Orders 24 hr Category Date Time Status Admission Status [Patient Status] [ADT] Stat ADT 10/20/19 17:29 Active Notify Provider Consults [RC] ASDIRECTED Care 10/20/19 18:40 Active Consult to Physician [CONS] Stat Cons 10/20/19 18:38 Active CULTURE BLOOD [BC] Stat Lab 10/20/19 16:03 Received CULTURE BLOOD [BC] Stat Lab 10/20/19 16:12 Received Acetaminophen [Ofirmev] 1,000 mg Med 10/20/19 19:20 Active Premix Bag 1 bag IV Q6H Levofloxacin/Dextrose 5%-Water [Levaquin in D5W 500 MG/ Med 10/20/19 19:47 Active 100 ML] 500 mg Premix Bag 1 bag IV ONETIME Levofloxacin/Dextrose 5%-Water [Levaquin in D5W 500 MG/ Med 10/20/19 19:58 Active 100 ML] 500 mg Premix Bag 1 bag IV ONETIME Sodium Chloride 0.9% [Normal Saline] 2,000 ml Med 10/20/19 17:15 Active IV ASDIRECTED Sodium Chloride 0.9% [Saline Flush] Med 10/20/19 15:54 Active 10 ml FLUSH ASDIRECTED PRN Sodium Chloride 0.9% [Saline Flush] Med 10/20/19 15:54 Active 2.5 ml FLUSH ASDIRECTED PRN fentaNYL [Sublimaze] Med 10/20/19 19:20 Active 50 mcg IVPUSH Q5M PRN Blood Culture x2 Reflex Set [OM.PC] Stat Ot 10/20/19 15:54 Ordered Saline Lock Insert [OM.PC] Stat Ot 10/20/19 15:54 Ordered Medication Orders Fentanyl (Sublimaze) 50 mcg IVPUSH Q5M PRN PRN Reason: Pain Sodium Chloride (Normal Saline) 2,000 mls @ 100 mls/hr IV ASDIRECTED JUAN Last Admin: 10/20/19 17:09 Dose: 100 mls/hr Documented by: [id number] Acetaminophen 1,000 mg/ Premix 100 mls @ 400 mls/hr IV Q6H PRN PRN Reason: Pain Levofloxacin/Dextrose 500 mg/ (Premix) 100 mls @ 100 mls/hr IV ONETIME ONE Stop: 10/20/19 20:46 Last Admin: 10/20/19 19:57 Dose: Not Given Documented by: [email or web address] Levofloxacin/Dextrose 500 mg/ (Premix) 100 mls @ 100 mls/hr IV ONETIME ONE Stop: 10/20/19 20:57 Sodium Chloride (Saline Flush) 10 ml FLUSH ASDIRECTED PRN PRN Reason: Keep Vein Open Last Admin: 10/20/19 17:02 Dose: 10 ml Documented by: [id number] Sodium Chloride (Saline Flush) 2.5 ml FLUSH ASDIRECTED PRN PRN Reason: Keep Vein Open Last Admin: 10/20/19 17:02 Dose: 2.5 ml Documented by: [id number] Assessment/Plan Comment:: A/P: 64 y/o M admitted for pyelonephritis secondary to obstructing renal stones s/p b/l renal stents, no purulent urine was found during the stenting procedure per urologist cont IV antibiotics, based on previous sensitivity will cont. Levaquin cont IV fluids for hydration, recheck lactate Morphine for pain Heparin SubQ for DVT ppx Zofran for nausea ambulate as tolerated Clear diet for now, advance as able Novolog SSI Trend septic tank servicer, CHRISTIAN over CKD vs progression of CKD f/u on blood and urine cultures Outpatient fu with Urology upon dc
[2019-10-20] MEDS ORDERED: Ondansetron 4 MG/2 ML SDV IVPUSH PRN (20:35)
[2019-10-20] MEDS ORDERED: Albuterol 8 GM Inhaler INH PRN (20:42)
[2019-10-20] MEDS ORDERED: 25% Dextrose in Water 10 ML Syringe IVPUSH PRN (20:45)
[2019-10-20] MEDS ORDERED: Non-Formulary Medication 1 Each (Dulaglutide [Trulicity] 0.75 MG) SUBCUT SCH (20:45)
[2019-10-20] MEDS ORDERED: glipiZIDE 5 MG Tab.ER PO SCH (21:15)
--- NOTE | 2019-10-20 21:25 | OR ---
SURGEON: Billy Logan M.D. DATE OF PROCEDURE: 10/20/2019 PREOPERATIVE DIAGNOSIS: Bilateral ureteral stones, too big to pass. POSTOPERATIVE DIAGNOSES: Bilateral ureteral stones, too big to pass, plus urinary tract infection and elevated serum creatinine. OPERATION: Cystoscopy, bilateral double-J stent placement. DESCRIPTION OF PROCEDURE: The patient was given general anesthesia. He was placed in the dorsal lithotomy position, prepped and draped in sterile drapes. Cystourethroscopy was done, showed irritative changes in the bladder related to the UTI. A Glidewire was advanced in the left ureter alongside the stone all the way up into the renal pelvis over which a 6-Slovak 26 cm double-J stent was placed. Position was confirmed with fluoroscopy. The right side was handled in the same manner. The stones, even though as large as they were, were not seen on the fluoroscopy images, possibly uric acid stones. The bladder was emptied, and the patient was moved to recovery room in good condition. HOLDEN / ARLETH /[id number]
--- NOTE | 2019-10-20 21:31 | PCM.POSTAN ---
POST ANESTHESIA ASSESSMENT - MENTAL STATUS Mental Status: Alert - VITAL SIGNS Vital Signs: Last Vital Signs Temp 36.5 C 10/20/19 20:58 Pulse 97 10/20/19 21:23 Resp 13 10/20/19 21:23 BP 128/84 10/20/19 21:23 Pulse Ox 93 L 10/20/19 21:23 - RESPIRATORY Respiratory Status: Respiratory Rate WNL - CARDIOVASCULAR CV Status: Pulse Rate WNL - GASTROINTESTINAL GI Status: No Symptoms - POST OP HYDRATION Hydration Status: Adequate & Stable
--- NOTE | 2019-10-20 22:05 | CR ---
Abdomen: 2 fluoroscopic spot views were obtained of the upper abdomen. Bilateral ureteral stents are seen. Proximal stents are in a location as expected for the renal pelvis on both sides. Fluoroscopy time is given as 13.5 seconds. Impression: 1. Procedural study as noted above. Diagnostic code #2 Study was dictated in MDT
[2019-10-20] MEDS: Albuterol/Ipratropium 3.0-0.5 MG/3 ML Neb Soln NEB PRN (22:27)
[2019-10-20] MEDS: Phenol 1.4% Oral Spray 177 ML Bottle MUCMEM PRN (22:49)
[2019-10-20] MEDS: Heparin Sodium 5,000 Units/ML Vial SUBCUT SCH (22:49)
[2019-10-20] MEDS: guaiFENesin 100 MG/5 ML Soln 5 ML UD Cup PO PRN (22:50)
[2019-10-20] MEDS: Morphine 10 MG/ML Syringe IVPUSH PRN (23:12)
[2019-10-20] MEDS ORDERED: Pneumococcal Polyvalent-23 Vaccine 0.5 ML SDV IM ONE (23:41)
[2019-10-21] MEDS: Morphine 10 MG/ML Syringe IVPUSH PRN ×2 (04:10→08:31)
[2019-10-21] MEDS: Phenol 1.4% Oral Spray 177 ML Bottle MUCMEM PRN ×3 (04:10→14:37)
[2019-10-21 05:47] LABS: CARBON DIOXIDE,CO2 23.9 mmol/L (21.0-32.0); POTASSIUM,K 4.4 mmol/L (3.5-5.1)
[2019-10-21] MEDS: Heparin Sodium 5,000 Units/ML Vial SUBCUT SCH ×3 (05:56→22:08)
[2019-10-21] MEDS: Albuterol/Ipratropium 3.0-0.5 MG/3 ML Neb Soln NEB PRN ×3 (06:14→19:30)
--- NOTE | 2019-10-21 07:58 | PCM.PN ---
- General Info Date of Service: 10/21/19 Admission Dx/Problem (Free Text): Admission Diagnosis/Problem Admission Diagnosis/Problem Pyelonephritis Subjective Update: Continues to have R and L flank pain, especially with movement and urination. Denies chest pain or SOB. reports congested cough and sore throat since after surgery. Passing gas Functional Status: Reports: Urinating. Denies: Pain Controlled - Review of Systems General: Reports: Weakness, Fatigue, Malaise HEENT: Reports: No Symptoms. Denies: Headaches, Visual Changes Pulmonary: Reports: Cough. Denies: Shortness of Breath Cardiovascular: Reports: No Symptoms. Denies: Chest Pain, Edema, Lightheadedness Gastrointestinal: Reports: No Symptoms, Flatus. Denies: Abdominal Pain, Nausea, Vomiting Genitourinary: Reports: Flank Pain. Denies: Dysuria Musculoskeletal: Reports: No Symptoms Skin: Reports: No Symptoms Neurological: Reports: No Symptoms Psychiatric: Reports: No Symptoms - Patient Data Vitals - Most Recent: Last Vital Signs Temp 99.5 F 10/21/19 07:30 Pulse 107 H 10/21/19 07:30 Resp 18 10/21/19 07:30 BP 115/69 10/21/19 07:30 Pulse Ox 92 L 10/21/19 07:30 Weight - Most Recent: 106.1 kg I&O - Last 24 Hours: Intake & Output 10/20/19 10/21/19 10/21/19 22:59 06:59 14:59 Intake Total 1900 820 Output Total 100 930 Balance 1800 -110 Lab Results Last 24 Hours: Laboratory Results - last 24 hr 10/20/19 10/20/19 10/20/19 Range/Units 11:30 14:14 16:03 WBC (4.0-11.0) K/uL RBC (4.50-5.90) M/uL Hgb (13.0-17.0) g/dL Hct (38.0-50.0) % MCV (80.0-98.0) fL MCH (27.0-32.0) pg MCHC (31.0-37.0) g/dL RDW Std Deviation (28.0-62.0) fl RDW Coeff of Olga (11.0-15.0) % Plt Count (150-400) K/uL MPV (7.40-12.00) fL Neut % (Auto) (48.0-80.0) % Lymph % (Auto) (16.0-40.0) % [place] % (Auto) (0.0-15.0) % Eos % (Auto) (0.0-7.0) % Baso % (Auto) (0.0-1.5) % Neut # (Auto) (1.4-5.7) K/uL Lymph # (Auto) (0.6-2.4) K/uL [place] # (Auto) (0.0-0.8) K/uL Eos # (Auto) (0.0-0.7) K/uL Baso # (Auto) (0.0-0.1) K/uL Nucleated RBC % /100WBC Nucleated RBCs # K/uL Lactate 0.9 3.0 H* (0.20-2.00) mmol/L Sodium (136-148) mmol/L Potassium (3.5-5.1) mmol/L Chloride (98-107) mmol/L Carbon Dioxide (21.0-32.0) mmol/L BUN (7.0-18.0) mg/dL Creatinine (0.8-1.3) mg/dL Est Cr Clr Drug Dosing mL/min Estimated GFR (MDRD) ml/min Glucose (74-106) mg/dL Calcium (8.5-10.1) mg/dL Phosphorus (2.6-4.7) mg/dL Magnesium (1.8-2.4) mg/dL Troponin I (0.000-0.056) ng/mL B-Natriuretic Peptide 4 (<100) PG/ML Lipase (73-393) U/L SARS-CoV-2 RNA (RT-PCR) (NEGATIVE) 10/20/19 10/20/19 10/20/19 Range/Units 16:03 18:40 21:06 WBC (4.0-11.0) K/uL RBC (4.50-5.90) M/uL Hgb (13.0-17.0) g/dL Hct (38.0-50.0) % MCV (80.0-98.0) fL MCH (27.0-32.0) pg MCHC (31.0-37.0) g/dL RDW Std Deviation (28.0-62.0) fl RDW Coeff of Olga (11.0-15.0) % Plt Count (150-400) K/uL MPV (7.40-12.00) fL Neut % (Auto) (48.0-80.0) % Lymph % (Auto) (16.0-40.0) % [place] % (Auto) (0.0-15.0) % Eos % (Auto) (0.0-7.0) % Baso % (Auto) (0.0-1.5) % Neut # (Auto) (1.4-5.7) K/uL Lymph # (Auto) (0.6-2.4) K/uL [place] # (Auto) (0.0-0.8) K/uL Eos # (Auto) (0.0-0.7) K/uL Baso # (Auto) (0.0-0.1) K/uL Nucleated RBC % /100WBC Nucleated RBCs # K/uL Lactate 1.5 (0.20-2.00) mmol/L Sodium (136-148) mmol/L Potassium (3.5-5.1) mmol/L Chloride (98-107) mmol/L Carbon Dioxide (21.0-32.0) mmol/L BUN (7.0-18.0) mg/dL Creatinine (0.8-1.3) mg/dL Est Cr Clr Drug Dosing mL/min Estimated GFR (MDRD) ml/min Glucose (74-106) mg/dL Calcium (8.5-10.1) mg/dL Phosphorus (2.6-4.7) mg/dL Magnesium (1.8-2.4) mg/dL Troponin I < 0.050 (0.000-0.056) ng/mL B-Natriuretic Peptide (<100) PG/ML Lipase 101 (73-393) U/L SARS-CoV-2 RNA (RT-PCR) NEGATIVE (NEGATIVE) 10/21/19 10/21/19 Range/Units 05:18 05:18 WBC 15.41 H (4.0-11.0) K/uL RBC 3.53 L (4.50-5.90) M/uL Hgb 11.1 L (13.0-17.0) g/dL Hct 34.5 L (38.0-50.0) % MCV 97.7 (80.0-98.0) fL MCH 31.4 (27.0-32.0) pg MCHC 32.2 (31.0-37.0) g/dL RDW Std Deviation 47.1 (28.0-62.0) fl RDW Coeff of Olga 13 (11.0-15.0) % Plt Count 300 (150-400) K/uL MPV 9.40 (7.40-12.00) fL Neut % (Auto) 81.9 H (48.0-80.0) % Lymph % (Auto) 10.1 L (16.0-40.0) % [place] % (Auto) 7.7 (0.0-15.0) % Eos % (Auto) 0.1 (0.0-7.0) % Baso % (Auto) 0.2 (0.0-1.5) % Neut # (Auto) 12.6 H (1.4-5.7) K/uL Lymph # (Auto) 1.6 (0.6-2.4) K/uL [place] # (Auto) 1.2 H (0.0-0.8) K/uL Eos # (Auto) 0.0 (0.0-0.7) K/uL Baso # (Auto) 0.0 (0.0-0.1) K/uL Nucleated RBC % 0.0 /100WBC Nucleated RBCs # 0 K/uL Lactate (0.20-2.00) mmol/L Sodium 137 (136-148) mmol/L Potassium 4.4 (3.5-5.1) mmol/L Chloride 103 (98-107) mmol/L Carbon Dioxide 23.9 (21.0-32.0) mmol/L BUN 46 H (7.0-18.0) mg/dL Creatinine 2.6 H (0.8-1.3) mg/dL Est Cr Clr Drug Dosing 29.77 mL/min Estimated GFR (MDRD) 24.8 ml/min Glucose 162 H (74-106) mg/dL Calcium 7.8 L (8.5-10.1) mg/dL Phosphorus 3.8 (2.6-4.7) mg/dL Magnesium 1.8 (1.8-2.4) mg/dL Troponin I (0.000-0.056) ng/mL B-Natriuretic Peptide (<100) PG/ML Lipase (73-393) U/L SARS-CoV-2 RNA (RT-PCR) (NEGATIVE) Med Orders - Current: Current Medications Albuterol/Ipratropium (Duoneb 3.0-0.5 Mg/3 Ml) 3 ml NEB Q4HRRT PRN PRN Reason: Shortness Of Breath/wheezing Last Admin: 10/21/19 06:14 Dose: 3 ml Documented by: Dextrose/Water (Dextrose 25% In Water) 10 ml IVPUSH ONETIME PRN PRN Reason: Hypoglycemia Fentanyl (Sublimaze) 50 mcg IVPUSH Q5M PRN PRN Reason: Pain Guaifenesin (Robitussin) 100 mg PO Q4HR PRN PRN Reason: Cough Last Admin: 10/20/19 22:50 Dose: 100 mg Documented by: Heparin Sodium (Porcine) (Heparin Sodium) 5,000 units SUBCUT Q8H JUAN Last Admin: 10/21/19 05:56 Dose: 5,000 units Documented by: Acetaminophen 1,000 mg/ Premix 100 mls @ 400 mls/hr IV Q6H PRN PRN Reason: Pain Ceftriaxone Sodium/Dextrose 2 (gm/ Premix) 50 mls @ 100 mls/hr IV Q24H JUAN Sodium Chloride (Normal Saline) 1,000 mls @ 125 mls/hr IV Q8H [facility] Insulin Aspart (Novolog) 0 unit SUBCUT TIDAC [facility]; Protocol Morphine Sulfate (Morphine) 2 mg IVPUSH Q4H PRN PRN Reason: Pain (severe 7-10) Stop: 10/21/19 20:37 Last Admin: 10/21/19 04:10 Dose: 2 mg Documented by: Ondansetron HCl (Zofran) 4 mg IVPUSH Q4H PRN PRN Reason: Nausea/Vomiting Phenol/Menthol (Chloraseptic Throat [place]) 1 ml MUCMEM Q4H PRN PRN Reason: Sore Throat Last Admin: 10/21/19 04:10 Dose: 1 ml Documented by: Sodium Chloride (Saline Flush) 10 ml FLUSH ASDIRECTED PRN PRN Reason: Keep Vein Open Last Admin: 10/20/19 17:02 Dose: 10 ml Documented by: Sodium Chloride (Saline Flush) 2.5 ml FLUSH ASDIRECTED PRN PRN Reason: Keep Vein Open Last Admin: 10/20/19 17:02 Dose: 2.5 ml Documented by: Discontinued Medications Albuterol (Ventolin Hfa) 0 gm INH ASDIRECTED PRN PRN Reason: Shortness of Breath Amlodipine Besylate (Norvasc) 5 mg PO DAILY [facility] Ceftriaxone Sodium (Rocephin) 2 gm IVPUSH Q24H [facility] Fentanyl (Sublimaze) Confirm Administered Dose 250 mcg .ROUTE .STK-MED ONE Stop: 10/20/19 19:09 Fentanyl (Sublimaze) Confirm Administered Dose 100 mcg .ROUTE .STK-MED ONE Stop: 10/20/19 20:18 Glipizide (Glucotrol Xl) 5 mg PO BID [facility] Last Admin: 10/20/19 23:30 Dose: Not Given Documented by: Ceftriaxone Sodium/Dextrose 1 (gm/ Premix) 50 mls @ 100 mls/hr IV ONETIME ONE Stop: 10/20/19 16:25 Last Admin: 10/20/19 16:48 Dose: 100 mls/hr Documented by: Sodium Chloride (Normal Saline) 1,000 mls @ 999 mls/hr IV .Bolus ONE Stop: 10/20/19 17:50 Last Admin: 10/20/19 17:02 Dose: 999 mls/hr Documented by: Sodium Chloride (Normal Saline) 2,000 mls @ 125 mls/hr IV ASDIRECTED [facility] Last Admin: 10/20/19 22:31 Dose: 125 mls/hr Documented by: Levofloxacin/Dextrose (Levaquin In D5w 500 Mg/100 Ml) Confirm Administered Dose 200 mls @ as directed IV .STK-MED ONE Stop: 10/20/19 19:50 Last Admin: 10/20/19 19:56 Dose: 1,000 mls/hr Documented by: Levofloxacin/Dextrose 500 mg/ (Premix) 100 mls @ 100 mls/hr IV ONETIME ONE Stop: 10/20/19 20:46 Last Admin: 10/20/19 19:57 Dose: Not Given Documented by: Levofloxacin/Dextrose 500 mg/ (Premix) 100 mls @ 100 mls/hr IV ONETIME ONE Stop: 10/20/19 20:57 Last Admin: 10/20/19 23:31 Dose: Not Given Documented by: Levofloxacin/Dextrose 500 mg/ (Premix) 100 mls @ 100 mls/hr IV Q24H [facility] Levofloxacin/Dextrose (Levaquin In D5w 250 Mg/50 Ml) 50 mls @ 50 mls/hr IV Q24H JUAN Levofloxacin/Dextrose (Levaquin In D5w 250 Mg/50 Ml) 50 mls @ 50 mls/hr IV Q24H [facility] Lidocaine (Xylocaine-Mpf 2%) Confirm Administered Dose 5 ml .ROUTE .STK-MED ONE Stop: 10/20/19 19:14 Metformin HCl (Glucophage) 500 mg PO BIDMEALS [facility] Midazolam HCl (Versed 1 Mg/Ml) Confirm Administered Dose 2 mg .ROUTE .STK-MED ONE Stop: 10/20/19 19:09 Non-Formulary Medication (Dulaglutide [Trulicity]) 0.75 mg SUBCUT WEEKLY [facility] Non-Formulary Medication (Spironolact/Hydrochlorothiazid [Spironolactone-Hctz 25-25]) 20 - 25 mg PO DAILY [facility] Ondansetron HCl (Zofran) Confirm Administered Dose 4 mg .ROUTE .STK-MED ONE Stop: 10/20/19 19:20 Pneumococcal Polyvalent Vaccine (Pneumovax 23) 0.5 ml IM .ONCE ONE Stop: 10/20/19 23:42 Propofol (Diprivan 20 Ml) Confirm Administered Dose 200 mg .ROUTE .STK-MED ONE Stop: 10/20/19 19:09 Propofol (Diprivan 20 Ml) Confirm Administered Dose 200 mg .ROUTE .STK-MED ONE Stop: 10/20/19 20:16 - Exam General: Alert, Oriented, Cooperative, No Acute Distress Neck: Supple. No: JVD Lungs: Clear to Auscultation, Normal Respiratory Effort Cardiovascular: Regular Rate, Regular Rhythm GI/Abdominal Exam: Normal Bowel Sounds, Soft, Non-Tender Back Exam: CVA Tenderness (L), CVA Tenderness (R) Extremities: Normal Inspection, Normal Range of Motion, Non-Tender, No Pedal Edema Neurological: No New Focal Deficit Psy/Mental Status: Alert, Normal Affect, Normal Mood Sepsis Event Note - Evaluation Sepsis Screening Result: Severe Sepsis Risk - Focused Exam Vital Signs: Vital Signs Temp Pulse Resp BP Pulse Ox 10/21/19 07:30 99.5 F 107 H 18 115/69 92 L 10/21/19 03:40 98 F 99 18 126/77 92 L 10/21/19 01:00 100 17 114/77 92 L 10/20/19 23:35 100 18 114/72 92 L 10/20/19 23:05 104 H 17 127/71 92 L 10/20/19 22:35 98.8 F 101 H 17 130/75 93 L 10/20/19 22:20 101 H 18 148/79 H 92 L 10/20/19 22:05 91 16 130/67 94 L 10/20/19 21:50 98.8 F 96 17 131/75 96 10/20/19 21:27 101 H 18 124/85 92 L 10/20/19 21:23 97 13 128/84 93 L 10/20/19 21:18 98 16 126/80 93 L 10/20/19 21:12 100 20 116/71 94 L 10/20/19 21:07 102 H 18 128/84 94 L 10/20/19 21:02 101 H 18 113/70 96 10/20/19 20:58 97.7 F 104 H 13 119/20 L 95 Date Exam was Performed: 10/21/19 Time Exam was Performed: 11:15 - Problem List & Annotations (1) Pyelonephritis SNOMED Code(s): 27598373 Code(s): N12 - TUBULO-INTERSTITIAL NEPHRITIS, NOT SPCF ACUTE OR CHRONIC Status: Acute Current Visit: Yes (2) Hydronephrosis with renal calculous obstruction SNOMED Code(s): 07740701, 61242725, 68577997, 30400493, 227779505 Code(s): N13.2 - HYDRONEPHROSIS WITH RENAL AND URETERAL CALCULOUS OBSTRUCTION Status: Acute Current Visit: Yes (3) Acute kidney injury superimposed on CKD SNOMED Code(s): 35866400 Code(s): N17.9 - ACUTE KIDNEY FAILURE, UNSPECIFIED; N18.9 - CHRONIC KIDNEY DISEASE, UNSPECIFIED Status: Acute Current Visit: Yes (4) DM type 2 (diabetes mellitus, type 2) SNOMED Code(s): 33081308 Code(s): E11.9 - TYPE 2 DIABETES MELLITUS WITHOUT COMPLICATIONS Status: Chronic Current Visit: Yes Qualifiers: Diabetes mellitus custodial insulin use: without board turner use (5) HTN (hypertension) SNOMED Code(s): 20425367 Code(s): I10 - ESSENTIAL (PRIMARY) HYPERTENSION Status: Chronic Current Visit: Yes Qualifiers: Hypertension type: essential hypertension Qualified Code(s): I10 - Essential (primary) hypertension (6) COPD (chronic obstructive pulmonary disease) SNOMED Code(s): 53625956 Code(s): J44.9 - CHRONIC OBSTRUCTIVE PULMONARY DISEASE, UNSPECIFIED Status: Chronic Current Visit: Yes (7) History of tobacco use SNOMED Code(s): 669469386 Code(s): Z87.891 - PERSONAL HISTORY OF NICOTINE DEPENDENCE Status: Chronic Current Visit: Yes (8) Hx of renal calculi SNOMED Code(s): 007634261 Code(s): Z87.442 - PERSONAL HISTORY OF URINARY CALCULI Status: Chronic Current Visit: Yes - Problem List Review Problem List Initiated/Reviewed/Updated: Yes - My Orders Last 24 Hours: My Active Orders 10/21/19 08:00 Sodium Chloride 0.9% [Normal Saline] 1,000 ml IV Q8H cefTRIAXone [Rocephin in Dextrose,Iso-Osm 2 GM/50 ML] 2 gm Premix Bag 1 bag IV Q24H - Plan Plan:: this 64 y/o M admitted for pyelonephritis secondary to obstructing renal stones 1. Pyelonephritis secondary to obstructing renal stones - Broaden coverage to Rocephin 2 gm due to complicated UTI and await UC. - Bilateral double J stent placement last evening with Dr Logan. - cont NS 125 ml/hr for IV hydration - BC and UC pending. - Strain Urines - Add Oxycodone PO PRN pain - Morphine IV for pain PRN - Outpatient Urology follow on DC 2. CHRISTIAN on CKD - Appears baseline Cr 1.7 - Remains elevated today, continue IVFs - Avoid nephrotoxic medications 3. DM Type 2: - Hold PO medications - Novolog SSI with meals 4. HTN: - Holding ASPEN due to CHRISTIAN on CKD - Monitor BP before restarting Amlodipine and Spironolactone/HCTZ as BP softer this morning. VTE prophylaxis: Heparin Subcut Dispo: will need to longer than 2 midnight stay, will change to inpatient.
[2019-10-21] MEDS ORDERED: metFORMIN 500 MG Tab PO SCH (08:00)
[2019-10-21] MEDS ORDERED: Acetaminophen 325 MG Tab PO PRN ×2 (08:01→20:06)
--- NOTE | 2019-10-21 08:17 | PCM48HPAN ---
Post Anesthesia Note - EVALUATION WITHIN 48HRS OF ANESTHETIC Vital Signs in Normal Range: Yes Patient Participated in Evaluation: Yes Respiratory Function Stable: Yes Airway Patent: Yes Cardiovascular Function Stable: Yes Hydration Status Stable: Yes Pain Control Satisfactory: No (Patient states he's still quite uncomfortable. Nurse present with pain meds) Nausea and Vomiting Control Satisfactory: Yes Mental Status Recovered: Yes Vital Signs: Last Vital Signs Temp 37.5 C 10/21/19 07:30 Pulse 107 H 10/21/19 07:30 Resp 18 10/21/19 07:30 BP 115/69 10/21/19 07:30 Pulse Ox 92 L 10/21/19 07:30 - COMMENTS/OBSERVATIONS Free Text/Narrative:: No apparent anesthesia complications or concerns.
[2019-10-21] MEDS: Sodium Chloride 0.9% 1,000 ML IV SCH ×3 (08:26→22:54)
[2019-10-21] MEDS: guaiFENesin 100 MG/5 ML Soln 5 ML UD Cup PO PRN ×2 (08:30→14:36)
[2019-10-21] MEDS: Insulin Aspart 100 Units/ML 3 ML Pen SUBCUT SCH ×3 (08:30→17:22)
--- NOTE | 2019-10-21 08:36 | CONS ---
DATE OF CONSULTATION: 10/20/2019 DATE OF : 1955 PRIMARY CARE PHYSICIAN: Johnny Kitchen HISTORY OF PRESENT ILLNESS: A 64-year-old who was seen in the emergency room, presenting with 3 weeks of left flank pain and dysuria. He had urinary stones in the past. He was probably too worried about the COVID virus to come to the ER. He is afebrile. His white blood count is 21,000. His UA showed wbc's too numerous to count. He is alert and oriented. His lactic acid was 3. PHYSICAL EXAMINATION: GENERAL APPEARANCE: Normal. VITAL SIGNS: Normal. HEART: Normal sinus rhythm. LUNGS: Clear. ABDOMEN: Slightly obese, hard to evaluate, however, the left side shows moderate tenderness. GENITOURINARY: External genitalia normal. RECTAL: Prostate feels benign, does not feel enlarged. DIAGNOSTIC STUDIES: His CT scan was reviewed and that showed a 6.5 mm left lower ureteral stone with partial obstruction and 7 mm right lower ureteral stone with no significant obstruction. His creatinine by the way was 3.1. DIAGNOSES: Bilateral ureteral obstruction, he is still passing urine, and also urinary tract infection. PLAN: IV antibiotics and double-J stent placement on both sides. HOLDEN / ARLETH /[id number]
[2019-10-21] MEDS: cefTRIAXone 2 GM in Premix Bag 1 BAG IV SCH (08:37)
[2019-10-21] MEDS ORDERED: cefTRIAXone 1 GM Vial IVPUSH SCH (09:00)
[2019-10-21] MEDS ORDERED: Levofloxacin/Dextrose 5%-Water 50 ML IV SCH ×2 (09:00→20:00)
[2019-10-21] MEDS ORDERED: Levofloxacin/Dextrose 5%-Water 500 MG in Premix Bag 1 BAG IV SCH (09:00)
[2019-10-21] MEDS ORDERED: amLODIPine 5 MG Tab PO SCH (09:00)
[2019-10-21] MEDS: oxyCODONE 5 MG Tab PO PRN ×3 (11:44→22:10)
[2019-10-21] MEDS: Benzocaine/Cetylpyridinium/Menthol Lozenge MUCMEM PRN ×2 (11:51→14:37)
[2019-10-21] MEDS ORDERED: Acetaminophen 325 MG Tab PO SCH (20:01)
[2019-10-21] MEDS: methylPREDNISolone Sodium Succinate 40 MG/1 ML SDV IVPUSH SCH (20:22)
[2019-10-21] MEDS: Albuterol/Ipratropium 3.0-0.5 MG/3 ML Neb Soln NEB SCH (22:49)
[2019-10-22] MEDS: Albuterol/Ipratropium 3.0-0.5 MG/3 ML Neb Soln NEB SCH ×6 (02:13→21:15)
[2019-10-22] MEDS: Sodium Chloride 0.9% 1,000 ML IV SCH ×2 (02:36→07:07)
[2019-10-22] MEDS: methylPREDNISolone Sodium Succinate 40 MG/1 ML SDV IVPUSH SCH ×3 (03:46→20:55)
[2019-10-22] MEDS: Benzocaine/Cetylpyridinium/Menthol Lozenge MUCMEM PRN ×2 (04:08→08:27)
[2019-10-22 06:09] LABS: CARBON DIOXIDE,CO2 26.4 mmol/L (21.0-32.0); POTASSIUM,K 5.2 mmol/L (3.5-5.1)
[2019-10-22] MEDS: Heparin Sodium 5,000 Units/ML Vial SUBCUT SCH ×3 (06:12→23:00)
[2019-10-22] MEDS: Insulin Aspart 100 Units/ML 3 ML Pen SUBCUT SCH ×3 (08:18→18:29)
--- NOTE | 2019-10-22 09:52 | PCM.PN ---
- General Info Date of Service: 10/22/19 Admission Dx/Problem (Free Text): Admission Diagnosis/Problem Admission Diagnosis/Problem Pyelonephritis Subjective Update: Doing better this morning, pain controlled. No chest pain. Reports shortness of breath and congested cough. Flank pain better. Passing gas. Little appetite but drinking water. Functional Status: Reports: Pain Controlled, Tolerating Diet, Ambulating, Urinating - Review of Systems General: Reports: Malaise (but much improved from yesterday) Pulmonary: Reports: Shortness of Breath, Cough, Wheezing. Denies: Sputum Cardiovascular: Denies: Chest Pain, Palpitations, Edema Gastrointestinal: Reports: Decreased Appetite. Denies: Abdominal Pain, Nausea, Vomiting Genitourinary: Reports: No Symptoms. Denies: Flank Pain Musculoskeletal: Reports: No Symptoms Skin: Reports: No Symptoms Neurological: Reports: No Symptoms Psychiatric: Reports: No Symptoms - Patient Data Vitals - Most Recent: Last Vital Signs Temp 97.6 F 10/22/19 07:57 Pulse 86 10/22/19 07:57 Resp 18 10/22/19 07:57 BP 123/77 10/22/19 07:57 Pulse Ox 91 L 10/22/19 07:57 Weight - Most Recent: 106.1 kg I&O - Last 24 Hours: Intake & Output 10/21/19 10/22/19 10/22/19 22:59 06:59 14:59 Intake Total 220 1625 Output Total 1115 1475 Balance -895 150 Lab Results Last 24 Hours: Laboratory Results - last 24 hr 10/21/19 10/21/19 10/21/19 Range/Units 05:59 11:30 16:33 WBC (4.0-11.0) K/uL RBC (4.50-5.90) M/uL Hgb (13.0-17.0) g/dL Hct (38.0-50.0) % MCV (80.0-98.0) fL MCH (27.0-32.0) pg MCHC (31.0-37.0) g/dL RDW Std Deviation (28.0-62.0) fl RDW Coeff of Olga (11.0-15.0) % Plt Count (150-400) K/uL MPV (7.40-12.00) fL Neut % (Auto) (48.0-80.0) % Lymph % (Auto) (16.0-40.0) % [place] % (Auto) (0.0-15.0) % Eos % (Auto) (0.0-7.0) % Baso % (Auto) (0.0-1.5) % Neut # (Auto) (1.4-5.7) K/uL Lymph # (Auto) (0.6-2.4) K/uL [place] # (Auto) (0.0-0.8) K/uL Eos # (Auto) (0.0-0.7) K/uL Baso # (Auto) (0.0-0.1) K/uL Nucleated RBC % /100WBC Nucleated RBCs # K/uL Sodium (136-148) mmol/L Potassium (3.5-5.1) mmol/L Chloride (98-107) mmol/L Carbon Dioxide (21.0-32.0) mmol/L BUN (7.0-18.0) mg/dL Creatinine (0.8-1.3) mg/dL Est Cr Clr Drug Dosing mL/min Estimated GFR (MDRD) ml/min Glucose (74-106) mg/dL POC Glucose 158 H 157 H 147 H (60-110) mg/dL Calcium (8.5-10.1) mg/dL 10/22/19 10/22/19 10/22/19 Range/Units 05:37 05:37 06:16 WBC 11.18 H (4.0-11.0) K/uL RBC 3.73 L (4.50-5.90) M/uL Hgb 11.5 L (13.0-17.0) g/dL Hct 37.2 L (38.0-50.0) % MCV 99.7 H (80.0-98.0) fL MCH 30.8 (27.0-32.0) pg MCHC 30.9 L (31.0-37.0) g/dL RDW Std Deviation 48.1 (28.0-62.0) fl RDW Coeff of Olga 13 (11.0-15.0) % Plt Count 322 (150-400) K/uL MPV 9.70 (7.40-12.00) fL Neut % (Auto) 94.4 H (48.0-80.0) % Lymph % (Auto) 3.6 L (16.0-40.0) % [place] % (Auto) 1.9 (0.0-15.0) % Eos % (Auto) 0.0 (0.0-7.0) % Baso % (Auto) 0.1 (0.0-1.5) % Neut # (Auto) 10.6 H (1.4-5.7) K/uL Lymph # (Auto) 0.4 L (0.6-2.4) K/uL [place] # (Auto) 0.2 (0.0-0.8) K/uL Eos # (Auto) 0.0 (0.0-0.7) K/uL Baso # (Auto) 0.0 (0.0-0.1) K/uL Nucleated RBC % 0.0 /100WBC Nucleated RBCs # 0 K/uL Sodium 141 (136-148) mmol/L Potassium 5.2 H (3.5-5.1) mmol/L Chloride 106 (98-107) mmol/L Carbon Dioxide 26.4 (21.0-32.0) mmol/L BUN 34 H (7.0-18.0) mg/dL Creatinine 2.3 H (0.8-1.3) mg/dL Est Cr Clr Drug Dosing 33.65 mL/min Estimated GFR (MDRD) 28.6 ml/min Glucose 265 H (74-106) mg/dL POC Glucose 258 H (60-110) mg/dL Calcium 8.3 L (8.5-10.1) mg/dL Fernando Results Last 24 Hours: Microbiology 10/20/19 16:12 Aerobic Blood Culture - Preliminary Blood - Venous - Lab Draw NO GROWTH AFTER 1 DAY Anaerobic Blood Culture - Preliminary NO GROWTH AFTER 1 DAY 10/20/19 16:03 Aerobic Blood Culture - Preliminary Blood - Venous NO GROWTH AFTER 1 DAY Anaerobic Blood Culture - Preliminary NO GROWTH AFTER 1 DAY Med Orders - Current: Current Medications Acetaminophen (Tylenol) 650 mg PO Q4H PRN PRN Reason: Pain Albuterol/Ipratropium (Duoneb 3.0-0.5 Mg/3 Ml) 3 ml NEB Q4HRRT JUAN Last Admin: 10/22/19 09:33 Dose: 3 ml Documented by: Benzocaine/Menthol (Cepacol Sore Throat) 1 lozenge MUCMEM Q2H PRN PRN Reason: Sore Throat Last Admin: 10/22/19 08:27 Dose: 1 lozenge Documented by: Dextrose/Water (Dextrose 25% In Water) 10 ml IVPUSH ONETIME PRN PRN Reason: Hypoglycemia Guaifenesin (Robitussin) 100 mg PO Q4HR PRN PRN Reason: Cough Last Admin: 10/21/19 14:36 Dose: 100 mg Documented by: Heparin Sodium (Porcine) (Heparin Sodium) 5,000 units SUBCUT Q8H [facility] Last Admin: 10/22/19 06:12 Dose: 5,000 units Documented by: Ceftriaxone Sodium/Dextrose 2 (gm/ Premix) 50 mls @ 100 mls/hr IV Q24H [facility] Last Admin: 10/21/19 08:37 Dose: 100 mls/hr Documented by: Sodium Chloride (Normal Saline) 1,000 mls @ 125 mls/hr IV Q8H [facility] Last Admin: 10/22/19 07:07 Dose: 125 mls/hr Documented by: Insulin Aspart (Novolog) 0 unit SUBCUT TIDAC [facility]; Protocol Last Admin: 10/22/19 08:18 Dose: 6 units Documented by: Methylprednisolone Sodium Succinate (Solu-Medrol) 40 mg IVPUSH Q8H [facility] Last Admin: 10/22/19 03:46 Dose: 40 mg Documented by: Ondansetron HCl (Zofran) 4 mg IVPUSH Q4H PRN PRN Reason: Nausea/Vomiting Oxycodone HCl (Oxycodone) 5 mg PO Q4H PRN PRN Reason: Pain Last Admin: 10/21/19 22:10 Dose: 5 mg Documented by: Phenol/Menthol (Chloraseptic Throat [place]) 1 ml MUCMEM Q4H PRN PRN Reason: Sore Throat Last Admin: 10/21/19 14:37 Dose: 1 ml Documented by: Sodium Chloride (Saline Flush) 2.5 ml FLUSH ASDIRECTED PRN PRN Reason: Keep Vein Open Last Admin: 10/20/19 17:02 Dose: 2.5 ml Documented by: Discontinued Medications Acetaminophen (Tylenol) 650 mg PO Q4H PRN PRN Reason: Pain Acetaminophen (Tylenol) 650 mg PO Q4H [facility] Last Admin: 10/21/19 20:09 Dose: Not Given Documented by: Albuterol (Ventolin Hfa) 0 gm INH ASDIRECTED PRN PRN Reason: Shortness of Breath Albuterol/Ipratropium (Duoneb 3.0-0.5 Mg/3 Ml) 3 ml NEB Q4HRRT PRN PRN Reason: Shortness Of Breath/wheezing Last Admin: 10/21/19 19:30 Dose: 3 ml Documented by: Amlodipine Besylate (Norvasc) 5 mg PO DAILY [facility] Ceftriaxone Sodium (Rocephin) 2 gm IVPUSH Q24H [facility] Fentanyl (Sublimaze) Confirm Administered Dose 250 mcg .ROUTE .STK-MED ONE Stop: 10/20/19 19:09 Fentanyl (Sublimaze) 50 mcg IVPUSH Q5M PRN PRN Reason: Pain Fentanyl (Sublimaze) Confirm Administered Dose 100 mcg .ROUTE .STK-MED ONE Stop: 10/20/19 20:18 Glipizide (Glucotrol Xl) 5 mg PO BID [facility] Last Admin: 10/20/19 23:30 Dose: Not Given Documented by: Ceftriaxone Sodium/Dextrose 1 (gm/ Premix) 50 mls @ 100 mls/hr IV ONETIME ONE Stop: 10/20/19 16:25 Last Admin: 10/20/19 16:48 Dose: 100 mls/hr Documented by: Sodium Chloride (Normal Saline) 1,000 mls @ 999 mls/hr IV .Bolus ONE Stop: 10/20/19 17:50 Last Admin: 10/20/19 17:02 Dose: 999 mls/hr Documented by: Sodium Chloride (Normal Saline) 2,000 mls @ 125 mls/hr IV ASDIRECTED [facility] Last Admin: 10/20/19 22:31 Dose: 125 mls/hr Documented by: Acetaminophen 1,000 mg/ Premix 100 mls @ 400 mls/hr IV Q6H PRN PRN Reason: Pain Levofloxacin/Dextrose (Levaquin In D5w 500 Mg/100 Ml) Confirm Administered Dose 200 mls @ as directed IV .STK-MED ONE Stop: 10/20/19 19:50 Last Admin: 10/20/19 19:56 Dose: 1,000 mls/hr Documented by: Levofloxacin/Dextrose 500 mg/ (Premix) 100 mls @ 100 mls/hr IV ONETIME ONE Stop: 10/20/19 20:46 Last Admin: 10/20/19 19:57 Dose: Not Given Documented by: Levofloxacin/Dextrose 500 mg/ (Premix) 100 mls @ 100 mls/hr IV ONETIME ONE Stop: 10/20/19 20:57 Last Admin: 10/20/19 23:31 Dose: Not Given Documented by: Levofloxacin/Dextrose 500 mg/ (Premix) 100 mls @ 100 mls/hr IV Q24H [facility] Levofloxacin/Dextrose (Levaquin In D5w 250 Mg/50 Ml) 50 mls @ 50 mls/hr IV Q24H [facility] Levofloxacin/Dextrose (Levaquin In D5w 250 Mg/50 Ml) 50 mls @ 50 mls/hr IV Q24H [facility] Lidocaine (Xylocaine-Mpf 2%) Confirm Administered Dose 5 ml .ROUTE .STK-MED ONE Stop: 10/20/19 19:14 Metformin HCl (Glucophage) 500 mg PO BIDMEALS [facility] Midazolam HCl (Versed 1 Mg/Ml) Confirm Administered Dose 2 mg .ROUTE .STK-MED ONE Stop: 10/20/19 19:09 Morphine Sulfate (Morphine) 2 mg IVPUSH Q4H PRN PRN Reason: Pain (severe 7-10) Stop: 10/21/19 20:37 Last Admin: 10/21/19 08:31 Dose: 2 mg Documented by: Non-Formulary Medication (Dulaglutide [Trulicity]) 0.75 mg SUBCUT WEEKLY [facility] Non-Formulary Medication (Spironolact/Hydrochlorothiazid [Spironolactone-Hctz 25-25]) 20 - 25 mg PO DAILY [facility] Ondansetron HCl (Zofran) Confirm Administered Dose 4 mg .ROUTE .STK-MED ONE Stop: 10/20/19 19:20 Pneumococcal Polyvalent Vaccine (Pneumovax 23) 0.5 ml IM .ONCE ONE Stop: 10/20/19 23:42 Propofol (Diprivan 20 Ml) Confirm Administered Dose 200 mg .ROUTE .STK-MED ONE Stop: 10/20/19 19:09 Propofol (Diprivan 20 Ml) Confirm Administered Dose 200 mg .ROUTE .STK-MED ONE Stop: 10/20/19 20:16 Sodium Chloride (Saline Flush) 10 ml FLUSH ASDIRECTED PRN PRN Reason: Keep Vein Open Last Admin: 10/20/19 17:02 Dose: 10 ml Documented by: - Exam General: Alert, Oriented, Cooperative, No Acute Distress Lungs: Crackles (throughout). No: Normal Respiratory Effort (dyspnea) Cardiovascular: Regular Rate GI/Abdominal Exam: Normal Bowel Sounds, Soft, Non-Tender Back Exam: No: CVA Tenderness (L), CVA Tenderness (R) Extremities: Normal Inspection, Normal Range of Motion, Non-Tender, No Pedal Edema Neurological: No New Focal Deficit Psy/Mental Status: Alert, Normal Affect, Normal Mood Sepsis Event Note - Evaluation Sepsis Screening Result: No Definite Risk - Focused Exam Vital Signs: Vital Signs Temp Pulse Resp BP Pulse Ox Pulse Ox 10/22/19 07:57 97.6 F 86 18 123/77 91 L 10/22/19 04:00 92 L 10/22/19 03:30 97.4 F 88 18 119/73 92 L 10/21/19 22:51 98.8 F 95 20 130/73 90 L Date Exam was Performed: 10/22/19 Time Exam was Performed: 10:59 - Problem List & Annotations (1) Pyelonephritis SNOMED Code(s): 86943992 Code(s): N12 - TUBULO-INTERSTITIAL NEPHRITIS, NOT SPCF ACUTE OR CHRONIC Status: Acute Current Visit: Yes (2) Hydronephrosis with renal calculous obstruction SNOMED Code(s): 89511925, 82373545, 16679429, 09449555, 296718679 Code(s): N13.2 - HYDRONEPHROSIS WITH RENAL AND URETERAL CALCULOUS OBSTRUCTION Status: Acute Current Visit: Yes (3) Acute kidney injury superimposed on CKD SNOMED Code(s): 56170739 Code(s): N17.9 - ACUTE KIDNEY FAILURE, UNSPECIFIED; N18.9 - CHRONIC KIDNEY DISEASE, UNSPECIFIED Status: Acute Current Visit: Yes (4) DM type 2 (diabetes mellitus, type 2) SNOMED Code(s): 61158107 Code(s): E11.9 - TYPE 2 DIABETES MELLITUS WITHOUT COMPLICATIONS Status: Chronic Current Visit: Yes Qualifiers: Diabetes mellitus termination clerk insulin use: without termination clerk use (5) HTN (hypertension) SNOMED Code(s): 77132369 Code(s): I10 - ESSENTIAL (PRIMARY) HYPERTENSION Status: Chronic Current Visit: Yes Qualifiers: Hypertension type: essential hypertension Qualified Code(s): I10 - Essential (primary) hypertension (6) COPD (chronic obstructive pulmonary disease) SNOMED Code(s): 93853634 Code(s): J44.9 - CHRONIC OBSTRUCTIVE PULMONARY DISEASE, UNSPECIFIED Status: Chronic Current Visit: Yes (7) History of tobacco use SNOMED Code(s): 876434137 Code(s): Z87.891 - PERSONAL HISTORY OF NICOTINE DEPENDENCE Status: Chronic Current Visit: Yes (8) Hx of renal calculi SNOMED Code(s): 942924614 Code(s): Z87.442 - PERSONAL HISTORY OF URINARY CALCULI Status: Chronic Current Visit: Yes - Problem List Review Problem List Initiated/Reviewed/Updated: Yes - My Orders Last 24 Hours: My Active Orders 10/21/19 10:27 Patient Status [ADT] Stat 10/21/19 10:31 Benzocaine/Cetylpyrd/Menthol [Cepacol Sore Throat] 1 lozenge MUCMEM Q2H PRN 10/22/19 08:36 Chest 2V [CR] Urgent 10/23/19 05:11 BMP [BASIC METABOLIC PANEL,BMP] [CHEM] AM CBC WITH AUTO DIFF [HEME] AM 10/24/19 05:11 BMP [BASIC METABOLIC PANEL,BMP] [CHEM] AM CBC WITH AUTO DIFF [HEME] AM - Plan Plan:: this 64 y/o M admitted for pyelonephritis secondary to obstructing renal stones 1. Pyelonephritis secondary to obstructing renal stones - UC tobin sensitive Klebsiella, Restart Levaquin 750 Q48 hr for renal dosing. - Bilateral double J stent placement last evening with Dr Logan. - Stop IVFs. encourage PO hydration - BC negative. - Strain Urines - Oxycodone PO PRN pain - Outpatient Urology follow on DC 2. CHRISTIAN on CKD - Appears baseline Cr 1.7 - Improving, Cr 2.3 today. Stop IVFs and monitor. - Avoid nephrotoxic medications 3. DM Type 2: - Hold PO medications - Novolog SSI with meals 4. HTN: - Holding ASPEN due to CHRISTIAN on CKD - Monitor BP before restarting Amlodipine and Spironolactone/HCTZ as BP softer this morning. 5. COPD: - Worsening dyspnea/wheezing last evening. - Solumedrol 40 mg Q8hr IV - Encourage IS and CDB - Ambulate at least 4 x daily - Obtain CXR this am. VTE prophylaxis: Heparin Subcut Dispo: 1-2 more days
[2019-10-22] MEDS ORDERED: Levofloxacin/Dextrose 5%-Water 750 MG in Premix Bag 1 BAG IV SCH (10:30)
--- NOTE | 2019-10-22 12:10 | CR ---
Chest: 2 views of the chest were obtained. Comparison: Prior chest x-ray of 10/20/19. Heart size and mediastinum are normal. Lungs are clear no acute parenchymal change. Bony structures appear within normal limits for the patient's age. Impression: 1. Nothing acute is appreciated on 2 view chest x-ray. Diagnostic code #1 This report was dictated in MDT
[2019-10-22] MEDS: guaiFENesin 100 MG/5 ML Soln 5 ML UD Cup PO PRN (15:12)
[2019-10-22] MEDS: cefTRIAXone 2 GM in Premix Bag 1 BAG IV SCH (19:35)
[2019-10-23] MEDS: Albuterol/Ipratropium 3.0-0.5 MG/3 ML Neb Soln NEB SCH ×3 (02:07→09:58)
[2019-10-23] MEDS ORDERED: Melatonin 3 MG Tab PO ONE (02:29)
[2019-10-23] MEDS: methylPREDNISolone Sodium Succinate 40 MG/1 ML SDV IVPUSH SCH (04:48)
[2019-10-23] MEDS: Heparin Sodium 5,000 Units/ML Vial SUBCUT SCH (06:24)
[2019-10-23 06:39] LABS: CARBON DIOXIDE,CO2 25.7 mmol/L (21.0-32.0); POTASSIUM,K 4.5 mmol/L (3.5-5.1)
[2019-10-23] MEDS: Insulin Aspart 100 Units/ML 3 ML Pen SUBCUT SCH (07:52)
--- NOTE | 2019-10-23 11:14 | PCM.DCSUM1 ---
Discharge Summary - Hospital Course Free Text/Narrative:: 64 y/o M with PMH of DM, CKD, HTN, Renal stones, COPD, former smoker who was sent to ER from his PCP due to concern of UTI/Pyelonephritis. Patient felt weak,febrile, loss of appetite and has been staying in bed for last few days due to weakness. States that his symptoms started 3 weeks back and since than was getting worse. He has had profound weight loss. Lately he has become increasingly short of breath with the special dyspnea on exertion. ER: patient was found to have Leucocytosis and UTI. Started on IV antibiotics, and IV fluids, blood and urine cultures were sent. CT scan of abdomen reveled obstructing renal stones, Urology was consulted and patient was taken to OR for stent placement. Hospital course: s/p b/l stent placement; restarted on Levaquin based off previous sensitivities; 750 q 48hrs (renal dosing) Creatinine still elevated. H eld nephrotoxic drugs. BCX negative. Pain controlled w. oxycodone Aracely slightly improved; held IVF and encouraged PO intake. Mild wheezing appreciated; hx of COPD; solumedrol 40 mg q8hrs started; weaned off supplemental o2; improving on day of discharge. Discharge: advised to hold lisinopril and metformin. Recheck CBC and BMP in 4-5 days with follow up with PCP on October 27; determine to restart home medications Levaquin continued for additional 7 doses at q48hrs per sensitivities. Oxycodone q 8hrs PRN pain x 5 days also written. PDMP reviewed Prednisone 40 mg daily x 5 additional days Follow up with both PCP and Urology scheduled. Pt stable at discharge. pt requested discharge. - Discharge Data Discharge Date: 10/23/19 Discharge Disposition: Home, Self-Care 01 Condition: Fair - Referral to Home Health Primary Care Physician: Johnny Kitchen MD - Patient Summary/Data Consults: Consultations 10/20/19 18:38 Consult to Physician [CONS] Stat 10/23/19 11:09 Consult to Physical Therapy [PT Evaluation and Treatment] [CONS] Routine - Discharge Plan *PRESCRIPTION DRUG MONITORING PROGRAM REVIEWED*: Not Applicable *COPY OF PRESCRIPTION DRUG MONITORING REPORT IN PATIENT RADHA: Not Applicable Prescriptions/Med Rec: levoFLOXacin [Levaquin] 750 mg PO Q48H 7 Days #7 tablet oxyCODONE 5 mg PO Q8HR PRN 5 Days #15 tablet PRN Reason: Pain predniSONE [Prednisone] 40 mg PO DAILY 5 Days #10 tablet Home Medications: Home Meds amLODIPine Besylate [Amlodipine Besylate] 5 mg PO DAILY 08/30/14 [History] Albuterol [Ventolin HFA] 2 puff INH ASDIRECTED PRN 12/31/17 [History] Budesonide/Formoterol Fumarate [Symbicort 80-4.5 MCG] 1 inhalation INH BID PRN 12/31/17 [History] Dulaglutide [Trulicity] 0.75 mg SUBCUT WEEKLY 12/31/17 [History] Spironolact/Hydrochlorothiazid [Spironolactone-HCTZ 25-25] 20 - 25 mg PO DAILY 12/31/17 [History] glipiZIDE [Glucotrol XL] 0.5 tab PO BID 12/31/17 [History] guaiFENesin [Robitussin] 100 mg PO Q4HR PRN cup 10/23/19 [Rx] levoFLOXacin [Levaquin] 750 mg PO Q48H 7 Days #7 tablet 10/23/19 [Rx] oxyCODONE 5 mg PO Q8HR PRN 5 Days #15 tablet 10/23/19 [Rx] predniSONE [Prednisone] 40 mg PO DAILY 5 Days #10 tablet 10/23/19 [Rx] Patient Handouts: Acute Kidney Injury, Adult, Pyelonephritis, Adult, [id number], Oxycodone tablets or capsules, Chronic Kidney Disease, Adult, [id number], Levofloxacin tablets, Prednisone tablets Referrals: Johnny Kitchen MD [Primary Care Provider] - 10/28/19 8:30 am Billy Logan MD [Physician] - 11/04/19 1:15 pm (Please arrive 15 minutes early with identification and insurance cards to be seen.) - Discharge Summary/Plan Comment DC Time >30 min.: No - Patient Data Vitals - Most Recent: Last Vital Signs Temp 98.6 F 10/23/19 07:32 Pulse 88 10/23/19 07:32 Resp 14 10/23/19 07:32 BP 142/78 H 10/23/19 07:32 Pulse Ox 92 L 10/23/19 07:32 Weight - Most Recent: 106.1 kg I&O - Last 24 hours: Intake & Output 10/22/19 10/23/19 10/23/19 22:59 06:59 14:59 Intake Total 900 900 Output Total 400 1100 Balance 500 -200 Lab Results - Last 24 hrs: Laboratory Results - last 24 hr 10/22/19 10/22/19 10/23/19 Range/Units 11:26 17:35 06:00 WBC 11.68 H (4.0-11.0) K/uL RBC 3.62 L (4.50-5.90) M/uL Hgb 11.0 L (13.0-17.0) g/dL Hct 35.5 L (38.0-50.0) % MCV 98.1 H (80.0-98.0) fL MCH 30.4 (27.0-32.0) pg MCHC 31.0 (31.0-37.0) g/dL RDW Std Deviation 46.2 (28.0-62.0) fl RDW Coeff of Olga 13 (11.0-15.0) % Plt Count 359 (150-400) K/uL MPV 10.20 (7.40-12.00) fL Neut % (Auto) 90.2 H (48.0-80.0) % Lymph % (Auto) 5.2 L (16.0-40.0) % [place] % (Auto) 4.5 (0.0-15.0) % Eos % (Auto) 0.0 (0.0-7.0) % Baso % (Auto) 0.1 (0.0-1.5) % Neut # (Auto) 10.5 H (1.4-5.7) K/uL Lymph # (Auto) 0.6 (0.6-2.4) K/uL [place] # (Auto) 0.5 (0.0-0.8) K/uL Eos # (Auto) 0.0 (0.0-0.7) K/uL Baso # (Auto) 0.0 (0.0-0.1) K/uL Nucleated RBC % 0.0 /100WBC Nucleated RBCs # 0 K/uL Sodium (136-148) mmol/L Potassium (3.5-5.1) mmol/L Chloride (98-107) mmol/L Carbon Dioxide (21.0-32.0) mmol/L BUN (7.0-18.0) mg/dL Creatinine (0.8-1.3) mg/dL Est Cr Clr Drug Dosing mL/min Estimated GFR (MDRD) ml/min Glucose (74-106) mg/dL POC Glucose 257 H 193 H (60-110) mg/dL Calcium (8.5-10.1) mg/dL 10/23/19 10/23/19 Range/Units 06:00 06:30 WBC (4.0-11.0) K/uL RBC (4.50-5.90) M/uL Hgb (13.0-17.0) g/dL Hct (38.0-50.0) % MCV (80.0-98.0) fL MCH (27.0-32.0) pg MCHC (31.0-37.0) g/dL RDW Std Deviation (28.0-62.0) fl RDW Coeff of Olga (11.0-15.0) % Plt Count (150-400) K/uL MPV (7.40-12.00) fL Neut % (Auto) (48.0-80.0) % Lymph % (Auto) (16.0-40.0) % [place] % (Auto) (0.0-15.0) % Eos % (Auto) (0.0-7.0) % Baso % (Auto) (0.0-1.5) % Neut # (Auto) (1.4-5.7) K/uL Lymph # (Auto) (0.6-2.4) K/uL [place] # (Auto) (0.0-0.8) K/uL Eos # (Auto) (0.0-0.7) K/uL Baso # (Auto) (0.0-0.1) K/uL Nucleated RBC % /100WBC Nucleated RBCs # K/uL Sodium 139 (136-148) mmol/L Potassium 4.5 (3.5-5.1) mmol/L Chloride 104 (98-107) mmol/L Carbon Dioxide 25.7 (21.0-32.0) mmol/L BUN 42 H (7.0-18.0) mg/dL Creatinine 2.2 H (0.8-1.3) mg/dL Est Cr Clr Drug Dosing 35.18 mL/min Estimated GFR (MDRD) 30.1 ml/min Glucose 315 H (74-106) mg/dL POC Glucose 320 H (60-110) mg/dL Calcium 8.8 (8.5-10.1) mg/dL [place] Results - Last 24 hrs: Microbiology 10/20/19 16:12 Aerobic Blood Culture - Preliminary Blood - Venous - Lab Draw NO GROWTH AFTER 2 DAYS Anaerobic Blood Culture - Preliminary NO GROWTH AFTER 2 DAYS 10/20/19 16:03 Aerobic Blood Culture - Preliminary Blood - Venous NO GROWTH AFTER 2 DAYS Anaerobic Blood Culture - Preliminary NO GROWTH AFTER 2 DAYS Med Orders - Current: Current Medications Acetaminophen (Tylenol) 650 mg PO Q4H PRN PRN Reason: Pain Albuterol/Ipratropium (Duoneb 3.0-0.5 Mg/3 Ml) 3 ml NEB Q4HRRT [facility] Last Admin: 10/23/19 09:58 Dose: 3 ml Documented by: Benzocaine/Menthol (Cepacol Sore Throat) 1 lozenge MUCMEM Q2H PRN PRN Reason: Sore Throat Last Admin: 10/22/19 08:27 Dose: 1 lozenge Documented by: Dextrose/Water (Dextrose 25% In Water) 10 ml IVPUSH ONETIME PRN PRN Reason: Hypoglycemia Guaifenesin (Robitussin) 100 mg PO Q4HR PRN PRN Reason: Cough Last Admin: 10/22/19 15:12 Dose: 100 mg Documented by: Heparin Sodium (Porcine) (Heparin Sodium) 5,000 units SUBCUT Q8H [facility] Last Admin: 10/23/19 06:24 Dose: 5,000 units Documented by: Levofloxacin/Dextrose 750 mg/ (Premix) 150 mls @ 100 mls/hr IV Q48H [facility] Last Admin: 10/22/19 12:13 Dose: 100 mls/hr Documented by: Insulin Aspart (Novolog) 0 unit SUBCUT TIDAC [facility]; Protocol Last Admin: 10/23/19 07:52 Dose: 8 units Documented by: Methylprednisolone Sodium Succinate (Solu-Medrol) 40 mg IVPUSH Q8H [facility] Last Admin: 10/23/19 04:48 Dose: 40 mg Documented by: Ondansetron HCl (Zofran) 4 mg IVPUSH Q4H PRN PRN Reason: Nausea/Vomiting Oxycodone HCl (Oxycodone) 5 mg PO Q4H PRN PRN Reason: Pain Last Admin: 10/21/19 22:10 Dose: 5 mg Documented by: Phenol/Menthol (Chloraseptic Throat [place]) 1 ml MUCMEM Q4H PRN PRN Reason: Sore Throat Last Admin: 10/21/19 14:37 Dose: 1 ml Documented by: Sodium Chloride (Saline Flush) 2.5 ml FLUSH ASDIRECTED PRN PRN Reason: Keep Vein Open Last Admin: 10/20/19 17:02 Dose: 2.5 ml Documented by: Discontinued Medications Acetaminophen (Tylenol) 650 mg PO Q4H PRN PRN Reason: Pain Acetaminophen (Tylenol) 650 mg PO Q4H [facility] Last Admin: 10/21/19 20:09 Dose: Not Given Documented by: Albuterol (Ventolin Hfa) 0 gm INH ASDIRECTED PRN PRN Reason: Shortness of Breath Albuterol/Ipratropium (Duoneb 3.0-0.5 Mg/3 Ml) 3 ml NEB Q4HRRT PRN PRN Reason: Shortness Of Breath/wheezing Last Admin: 10/21/19 19:30 Dose: 3 ml Documented by: Amlodipine Besylate (Norvasc) 5 mg PO DAILY [facility] Ceftriaxone Sodium (Rocephin) 2 gm IVPUSH Q24H [facility] Fentanyl (Sublimaze) Confirm Administered Dose 250 mcg .ROUTE .STK-MED ONE Stop: 10/20/19 19:09 Fentanyl (Sublimaze) 50 mcg IVPUSH Q5M PRN PRN Reason: Pain Fentanyl (Sublimaze) Confirm Administered Dose 100 mcg .ROUTE .STK-MED ONE Stop: 10/20/19 20:18 Glipizide (Glucotrol Xl) 5 mg PO BID [facility] Last Admin: 10/20/19 23:30 Dose: Not Given Documented by: Ceftriaxone Sodium/Dextrose 1 (gm/ Premix) 50 mls @ 100 mls/hr IV ONETIME ONE Stop: 10/20/19 16:25 Last Admin: 10/20/19 16:48 Dose: 100 mls/hr Documented by: Sodium Chloride (Normal Saline) 1,000 mls @ 999 mls/hr IV .Bolus ONE Stop: 10/20/19 17:50 Last Admin: 10/20/19 17:02 Dose: 999 mls/hr Documented by: Sodium Chloride (Normal Saline) 2,000 mls @ 125 mls/hr IV ASDIRECTED [facility] Last Admin: 10/20/19 22:31 Dose: 125 mls/hr Documented by: Acetaminophen 1,000 mg/ Premix 100 mls @ 400 mls/hr IV Q6H PRN PRN Reason: Pain Levofloxacin/Dextrose (Levaquin In D5w 500 Mg/100 Ml) Confirm Administered Dose 200 mls @ as directed IV .STK-MED ONE Stop: 10/20/19 19:50 Last Admin: 10/20/19 19:56 Dose: 1,000 mls/hr Documented by: Levofloxacin/Dextrose 500 mg/ (Premix) 100 mls @ 100 mls/hr IV ONETIME ONE Stop: 10/20/19 20:46 Last Admin: 10/20/19 19:57 Dose: Not Given Documented by: Levofloxacin/Dextrose 500 mg/ (Premix) 100 mls @ 100 mls/hr IV ONETIME ONE Stop: 10/20/19 20:57 Last Admin: 10/20/19 23:31 Dose: Not Given Documented by: Levofloxacin/Dextrose 500 mg/ (Premix) 100 mls @ 100 mls/hr IV Q24H [facility] Levofloxacin/Dextrose (Levaquin In D5w 250 Mg/50 Ml) 50 mls @ 50 mls/hr IV Q24H [facility] Levofloxacin/Dextrose (Levaquin In D5w 250 Mg/50 Ml) 50 mls @ 50 mls/hr IV Q24H [facility] Ceftriaxone Sodium/Dextrose 2 (gm/ Premix) 50 mls @ 100 mls/hr IV Q24H [facility] Last Admin: 10/22/19 19:35 Dose: Not Given Documented by: Sodium Chloride (Normal Saline) 1,000 mls @ 125 mls/hr IV Q8H [facility] Last Admin: 10/22/19 07:07 Dose: 125 mls/hr Documented by: Lidocaine (Xylocaine-Mpf 2%) Confirm Administered Dose 5 ml .ROUTE .STK-MED ONE Stop: 10/20/19 19:14 Melatonin (Melatonin) 6 mg PO ONETIME ONE Stop: 10/23/19 02:30 Last Admin: 10/23/19 02:38 Dose: 6 mg Documented by: Metformin HCl (Glucophage) 500 mg PO BIDMEALS [facility] Midazolam HCl (Versed 1 Mg/Ml) Confirm Administered Dose 2 mg .ROUTE .STK-MED ONE Stop: 10/20/19 19:09 Morphine Sulfate (Morphine) 2 mg IVPUSH Q4H PRN PRN Reason: Pain (severe 7-10) Stop: 10/21/19 20:37 Last Admin: 10/21/19 08:31 Dose: 2 mg Documented by: Non-Formulary Medication (Dulaglutide [Trulicity]) 0.75 mg SUBCUT WEEKLY [facility] Non-Formulary Medication (Spironolact/Hydrochlorothiazid [Spironolactone-Hctz 25-25]) 20 - 25 mg PO DAILY [facility] Ondansetron HCl (Zofran) Confirm Administered Dose 4 mg .ROUTE .STK-MED ONE Stop: 10/20/19 19:20 Pneumococcal Polyvalent Vaccine (Pneumovax 23) 0.5 ml IM .ONCE ONE Stop: 10/20/19 23:42 Propofol (Diprivan 20 Ml) Confirm Administered Dose 200 mg .ROUTE .STK-MED ONE Stop: 10/20/19 19:09 Propofol (Diprivan 20 Ml) Confirm Administered Dose 200 mg .ROUTE .STK-MED ONE Stop: 10/20/19 20:16 Sodium Chloride (Saline Flush) 10 ml FLUSH ASDIRECTED PRN PRN Reason: Keep Vein Open Last Admin: 10/20/19 17:02 Dose: 10 ml Documented by:
[2019-10-23 12:02] VITALS: BP 125/73; PULSE 101
== END 2019-10-23 12:10 | disposition home or self-care (01) | DRG 463 ==
LOC: MW.ED 15:36 → OBSVTOIN 17:29 → MW.MS 17:29
PROVIDERS: ADMIT Student in an Organized Health Care Education/Training Program; ATTEND Student in an Organized Health Care Education/Training Program
PROC: 0T788DZ Dilation of Bilateral Ureters with Intraluminal Device, Via Natural or Artificial Opening Endoscopic (ICD-10-PCS; principal; 2019-10-20)
DX: N13.6 Pyonephrosis (principal); N17.9 Acute kidney failure, unspecified; N39.0 Urinary tract infection, site not specified; I12.9 Hypertensive chronic kidney disease with stage 1 through stage 4 chronic kidney disease, or unspecified chronic kidney disease; N12 Tubulo-interstitial nephritis, not specified as acute or chronic; N18.9 Chronic kidney disease, unspecified; E11.22 Type 2 diabetes mellitus with diabetic chronic kidney disease; G47.30 Sleep apnea, unspecified; J44.9 Chronic obstructive pulmonary disease, unspecified; E66.9 Obesity, unspecified; Z87.891 Personal history of nicotine dependence; Z87.440 Personal history of urinary (tract) infections; Z79.84 Long term (current) use of oral hypoglycemic drugs; Z79.899 Other long term (current) drug therapy; Z90.89 Acquired absence of other organs; Z68.32 Body mass index [BMI] 32.0-32.9, adult
CPT/HCPCS: 36415; 71045; 71045-26; 71046; 71046-26; 74176; 74176-26; 76000; 76000-26; 80048; 82962; 83605; 83690; 83735; 83880; 84100; 84484; 85025; 87040; 93005; 94640; 96361; 96365; 96376; 97161-GP; 99284; 99285-25; A9270-GY; C1769; C2617; G0378; J0330; J0696; J1644; J1815-GY; J1956; J2001; J2250; J2270; J2405; J2704; J2920; J3010; J7030; J7620-GY; U0002

== ENCOUNTER 2019-11-09 08:16 | Day surgery (SDC) | payer BC ==
[~2019-11-09 08:16] MED LIST changes: +Sodium Chloride 0.9% 10 ML SDV IV PRN
[2019-11-09 09:16] LABS: CARBON DIOXIDE,CO2 24.8 mmol/L (21.0-32.0); POTASSIUM,K 4.1 mmol/L (3.5-5.1)
--- NOTE | 2019-11-09 09:21 | PCM.PREANE ---
Preanesthetic Assessment - Anesthesia/Transfusion/Family Hx Anesthesia History: Prior Anesthesia Without Reaction Family History of Anesthesia Reaction: No Transfusion History: No Prior Transfusion(s) Intubation History: Unknown - Review of Systems General: No Symptoms Pulmonary: No Symptoms Cardiovascular: No Symptoms Gastrointestinal: No Symptoms Neurological: No Symptoms Other: Reports: None - Physical Assessment NPO Status Date: 11/08/19 Vital Signs: Last Vital Signs Temp 98.1 F 11/09/19 08:40 Pulse 90 11/09/19 08:40 Resp 16 11/09/19 08:40 BP 106/73 11/09/19 08:40 Pulse Ox 93 L 11/09/19 08:40 Height: 5 ft 11 in Weight: 99.79 kg ASA Class: 3 Mental Status: Alert & Oriented x3 Airway Class: Mallampati = 2 Dentition: Reports: Normal Dentition ROM/Head Extension: Full Lungs: Clear to Auscultation, Normal Respiratory Effort Cardiovascular: Regular Rate, Regular Rhythm - Allergies Allergies/Adverse Reactions: Allergies Allergy/AdvReac Type Severity Reaction Status Date / Time No Known Allergies Allergy Verified 11/08/19 08:50 - Blood Blood Available: No - Anesthesia Plan Pre-Op Medication Ordered: None - Acknowledgements Pt an Appropriate Candidate for the Planned Anesthesia: Yes Alternatives and Risks of Anesthesia Discussed w Pt/Guardian: Yes Pt/Guardian Understands and Agrees with Anesthesia Plan: Yes Additional Comments: Anesthesia problem list: copd, hepC-treated, SHIRA-uses CPAP, DM2, HTN, denies RAD, CKD3-4, renal tubular acidosis, fibromyalgia PLAN: GET PreAnesthesia Questionnaire HEENT History: Reports: Other (See Below) Other HEENT History: wears glasses Cardiovascular History: Reports: Hypertension Respiratory History: Reports: COPD, Sleep Apnea Other Respiratory History: uses CPAP Gastrointestinal History: Reports: Hepatitis Other Gastrointestinal History: hepatitis C in the past, has been treated Genitourinary History: Reports: Renal Calculus Musculoskeletal History: Reports: Arthritis Neurological History: Reports: Concussion Psychiatric History: Reports: None Endocrine/Metabolic History: Reports: Diabetes, Type II, Obesity/BMI 30+ Hematologic History: Reports: None Immunologic History: Reports: None Oncologic (Cancer) History: Reports: None Dermatologic History: Reports: None - Infectious Disease History Infectious Disease History: Reports: Chicken Pox, Measles, Mumps - Past Surgical History Head Surgeries/Procedures: Reports: None HEENT Surgical History: Reports: Tonsillectomy Cardiovascular Surgical History: Reports: None Respiratory Surgical History: Reports: None GI Surgical History: Reports: None Male Surgical History: Reports: Lithotripsy (ESWL), Vasectomy Other Male Surgeries/Procedures: cysto with katherine double J stent placement 10/20/19 Endocrine Surgical History: Reports: None Neurological Surgical History: Reports: None Musculoskeletal Surgical History: Reports: None Oncologic Surgical History: Reports: None Dermatological Surgical History: Reports: None - SUBSTANCE USE Tobacco Use Within Last Twelve Months: No - HOME MEDS Home Medications: Home Meds amLODIPine Besylate [Amlodipine Besylate] 5 mg PO DAILY 08/30/14 [History] Albuterol [Ventolin HFA] 2 puff INH ASDIRECTED PRN 12/31/17 [History] Budesonide/Formoterol Fumarate [Symbicort 80-4.5 MCG] 2 inhalation INH BID PRN 12/31/17 [History] Dulaglutide [Trulicity] 1.5 mg SUBCUT WEEKLY 12/31/17 [History] Spironolact/Hydrochlorothiazid [Spironolactone-HCTZ 25-25] 1 tab PO DAILY 12/31/17 [History] glipiZIDE [Glucotrol XL] 0.5 tab PO BID 12/31/17 [History] lisinopriL [Lisinopril] 20 mg PO DAILY 11/08/19 [History] metFORMIN HCl [Metformin HCl ER] 500 mg PO BID 11/08/19 [History] - CURRENT (IN HOUSE) MEDS Current Meds: Current Medications Lactated Ringer's (Ringers, Lactated) 1,000 mls @ 100 mls/hr IV ASDIRECTED JUAN Last Admin: 11/09/19 09:00 Dose: 100 mls/hr Documented by: Sodium Chloride (Saline Flush) 10 ml FLUSH ASDIRECTED PRN PRN Reason: Keep Vein Open Sodium Chloride (Saline Flush) 2.5 ml FLUSH ASDIRECTED PRN PRN Reason: Keep Vein Open Sodium Chloride (Normal Saline) 10 ml IV ASDIRECTED PRN PRN Reason: IV Use Discontinued Medications Cefazolin Sodium/Dextrose 2 gm (/ Premix) 50 mls @ 100 mls/hr IV ONCALL ONE Stop: 11/09/19 00:30
[2019-11-09] MEDS ORDERED: ceFAZolin 1 GM Vial ONE (10:05)
[2019-11-09] MEDS ORDERED: Ondansetron 4 MG/2 ML SDV ONE (10:07)
[2019-11-09] MEDS ORDERED: Midazolam 1 MG/ML 2 ML SDV ONE (10:08)
[2019-11-09] MEDS ORDERED: Propofol 200 MG/20 ML SDV ONE (10:08)
[2019-11-09] MEDS ORDERED: fentaNYL 250 MCG/5 ML SDV ONE (10:08)
[2019-11-09] MEDS ORDERED: Iopamidol 200-M 10 ML vial ITHECAL ONE (10:11)
[2019-11-09] MEDS ORDERED: Acetaminophen 1,000 MG in Premix Bag 1 BAG IV ONE (11:28)
[2019-11-09] MEDS ORDERED: Morphine 4 MG/ML Syringe IVPUSH ONE (11:29)
[2019-11-09] MEDS ORDERED: BUDESONIDE INH PRN (11:45)
[2019-11-09] MEDS ORDERED: FORMOTEROL FUMARATE INH PRN (11:45)
[2019-11-09] MEDS ORDERED: Non-Formulary Medication 1 Each (Dulaglutide [Trulicity] 1.5 MG) SUBCUT SCH (11:45)
[2019-11-09] MEDS ORDERED: [UNRECOGNIZED DRUG - OTHER] INH PRN (11:45)
[2019-11-09] MEDS ORDERED: Acetaminophen/oxyCODONE 325-5 MG Tab PO PRN (12:22)
--- NOTE | 2019-11-09 13:01 | OR ---
SURGEON: Billy Logan M.D. DATE OF PROCEDURE: 11/09/2019 PREOPERATIVE DIAGNOSIS: Bilateral large lower ureteral stones, between 9 mm and 1.1 cm. POSTOPERATIVE DIAGNOSIS: Bilateral large lower ureteral stones, between 9 mm and 1.1 cm. OPERATIONS: Cystoscopy, double-J stent removal, left ureteroscopy with laser lithotripsy, and right ureteroscopy with laser lithotripsy. DESCRIPTION OF PROCEDURE: The patient was given general anesthesia. He was in dorsal lithotomy position, prepped and draped in sterile drapes. Cystourethroscopy was done. The existing double-J stents were removed. A guidewire was advanced in the left ureter all the way up into the renal pelvis alongside the stone. The rigid ureteroscope was advanced in the left ureter. The stone was treated until it became of such a size that it was possible to be taken out with a grasper. The ureter was in good shape. The trauma to the ureter was minimal. The same exact procedure was done on the right side using again the laser application until the stone became small enough to be removed by the grasper. Inspection of the ureter showed no residual stone of any significant size, mostly just debris, and the ureter was safe. The bladder was emptied. The specimens were also in it, and the patient was moved to recovery room in good condition. HOLDEN / ARLETH /[id number]
--- NOTE | 2019-11-09 13:10 | PCM48HPAN ---
Post Anesthesia Note - EVALUATION WITHIN 48HRS OF ANESTHETIC Vital Signs in Normal Range: Yes Patient Participated in Evaluation: Yes Respiratory Function Stable: Yes Airway Patent: Yes Cardiovascular Function Stable: Yes Hydration Status Stable: Yes Pain Control Satisfactory: Yes Nausea and Vomiting Control Satisfactory: Yes Mental Status Recovered: Yes Vital Signs: Last Vital Signs Temp 97.5 F 11/09/19 11:36 Pulse 89 11/09/19 11:52 Resp 12 11/09/19 11:52 BP 102/64 11/09/19 11:52 Pulse Ox 97 11/09/19 11:52
--- NOTE | 2019-11-09 13:10 | PCM.POSTAN ---
POST ANESTHESIA ASSESSMENT - MENTAL STATUS Mental Status: Alert, Oriented - VITAL SIGNS Vital Signs: Last Vital Signs Temp 97.5 F 11/09/19 11:36 Pulse 89 11/09/19 11:52 Resp 12 11/09/19 11:52 BP 102/64 11/09/19 11:52 Pulse Ox 97 11/09/19 11:52 - RESPIRATORY Respiratory Status: Respiratory Rate WNL, Airway Patent, O2 Saturation Stable - CARDIOVASCULAR CV Status: Pulse Rate WNL, Blood Pressure Stable - GASTROINTESTINAL GI Status: No Symptoms - POST OP HYDRATION Hydration Status: Adequate & Stable
[2019-11-09 14:03] VITALS: BP 116/76
[2019-11-09 14:04] VITALS: PULSE 76
[2019-11-09] MEDS ORDERED: Non-Formulary Medication 1 Each (Metformin Hcl [Metformin Hcl Er] 500 MG) PO SCH (21:00)
[2019-11-09] MEDS ORDERED: GLIPIZIDE PO SCH (21:00)
[2019-11-10] MEDS ORDERED: Non-Formulary Medication 1 Each (Lisinopril 20 MG) PO SCH (09:00)
[2019-11-10] MEDS ORDERED: AMLODIPINE 5 MG PO SCH (09:00)
--- NOTE | 2019-11-10 15:34 | CR ---
Abdomen: 2 fluoroscopic spot views were obtained of the upper abdomen. Study shows proximal ureteral stents in place. Fluoroscopy time given as 12.1 seconds. Impression: 1. Procedural study as noted above. Diagnostic code #2 This report was dictated in MDT
== END 2019-11-09 13:40 | disposition home or self-care (01) ==
LOC: MW.SDS 08:16
PROVIDERS: ATTEND Urology
DX: N20.1 Calculus of ureter (principal); J44.9 Chronic obstructive pulmonary disease, unspecified; E66.9 Obesity, unspecified; G47.33 Obstructive sleep apnea (adult) (pediatric); I12.9 Hypertensive chronic kidney disease with stage 1 through stage 4 chronic kidney disease, or unspecified chronic kidney disease; E11.22 Type 2 diabetes mellitus with diabetic chronic kidney disease; N18.9 Chronic kidney disease, unspecified; E11.42 Type 2 diabetes mellitus with diabetic polyneuropathy; Z87.891 Personal history of nicotine dependence; Z79.84 Long term (current) use of oral hypoglycemic drugs; Z79.899 Other long term (current) drug therapy; Z99.89 Dependence on other enabling machines and devices; Z68.30 Body mass index [BMI] 30.0-30.9, adult
CPT/HCPCS: 00918; 76000; 76000-26; 80048; 88300; A9270-GY; C1769; J0690; J2250; J2270; J2405; J2704; J3010; J7120; Q9966